=== PATIENT | male | born 1955 | race Caucasian/White ===

== ENCOUNTER 2018-08-22 00:44 | Inpatient (IN) | payer MEDICARE, OTHER ==
[2018-08-22] MEDS ORDERED: NITROGLYCERIN OINT 1 INCH/GM PACKET TOPICAL STA (00:58)
[2018-08-22] MEDS ORDERED: SODIUM CHLORIDE 0.9% 1,000 ML IV STA (00:58)
--- NOTE | 2018-08-22 01:01 | ED ---
Chest Pain HPI - General Chief Complaint: Chest Pain Stated Complaint: Chest Pain Time Seen by Provider: 08/22/18 00:55 Source: patient, EMS Mode of arrival: EMS - History of Present Illness Initial Comments: This is a 62-year-old male with a history of hypertension, every day smoker who presents the emergency department for evaluation of chest pain. Patient reports that he was walking to his mailbox when he began experiencing pain in his chest and numbness in his left arm. This made him concerned so called 911. EMS arrived on scene, patient was in moderate distress, appearing comfortable , was given aspirin and nitro with some improvement in his chest pain he subsequent transfer to the ER for further evaluation. EMS EKG showed no acute ST elevations or depressions or evidence of acute ischemia or infarction. She reports he has a history of hypertension but he takes his medications, he is uncertain if he has hyperlipidemia, he is not diabetic, he isn't every day smoker, he has no known cardiac history. - Related Data Allergies Allergy/AdvReac Type Severity Reaction Status Date / Time No Known Allergies Allergy Verified 08/22/18 00:58 Review of Systems ROS Statement: Those systems with pertinent positive or pertinent negative responses have been documented in the HPI. ROS Other: All systems not noted in ROS Statement are negative. EKG Findings - EKG Comments: EKG Findings:: EKG obtained at 12:53 AM, rate is 109, rhythm is sinus tachycardia, there is normal axis, normal intervals, TN 172, curious 86, QTC is 465. There is significant respiratory variation with a wandering baseline, no obvious acute ST elevations, no ST depressions no acute ischemia or infarction. Repeat EKG obtained at 2:01 AM, rate is 100, rhythm is sinus, there is a normal axis, normal intervals, TN 154, QRS 86, QTC is 459. There still appeared to be 1 mm elevations in V2 through V4, no reciprocal depressions, no STEMI criteria. Patient is chest pain-free at the time of this EKG. Past Medical History Past Medical History: Hypertension History of Any Multi-Drug Resistant Organisms: None Reported Past Surgical History: No Surgical Hx Reported Past Psychological History: No Psychological Hx Reported Smoking Status: Current every day smoker Past Alcohol Use History: Daily Past Drug Use History: None Reported Course Vital Signs 08/22/18 08/22/18 00:55 01:35 Temperature 98.2 F Pulse Rate 107 H 105 H Respiratory 16 16 Rate Blood Pressure 125/77 128/75 O2 Sat by Pulse 97 97 Oximetry Chest Pain MDM - Differential Diagnosis AMI - MDM Patient was seen and evaluated, history was obtained from patient and EMS 62-year-old gentleman with multiple comorbidities and including hypertension, tobacco abuse, age presents the ED with chest pain that began while walking to the mailbox, pain was retrosternal in nature radiated to his left shoulder. Pain resolved with nitro. Upon arrival to the emergency department patient is chest pain-free and feeling well. Heart score 7 Troponin elevated, low dose heparin ordered D-dimer elevated, CT ordered Transaminases elevated, likely related to alcohol use Patient care discussed with Dr. Dixon of [facility], [place] physician who accepts admission for NSTEMI CT-PE pending at time of admission CT PE negative for acute PE Disposition Clinical Impression: NSTEMI (non-ST elevated myocardial infarction), Tobacco abuse, HTN ( hypertension), Alcohol abuse Disposition: ADMITTED IP TO THIS HOSP Condition: Good Is patient prescribed a controlled substance at d/c from ED?: No
[2018-08-22 01:29] LABS: ALT 123 U/L (21-72); AST 142 U/L (17-59); Albumin 4.6 g/dL (3.5-5.0); Alcohol 32 mg/dL; Alkaline Phosphatase 89 U/L (38-126); Anion Gap 22 mmol/L; Blood Urea Nitrogen 17 mg/dL (9-20); Calcium 9.2 mg/dL (8.4-10.2); Carbon Dioxide 13 mmol/L (22-30); Chloride 103 mmol/L (98-107); Glucose 81 mg/dL (74-99); Lipase 86 U/L (23-300); Magnesium 1.6 mg/dL (1.6-2.3); Potassium 4.6 mmol/L (3.5-5.1); Sodium 138 mmol/L (137-145); Total Bilirubin 0.6 mg/dL (0.2-1.3); Total Protein 7.4 g/dL (6.3-8.2)
[2018-08-22 01:34] LABS: Partial Thromboplastin Time 22.3 sec (22.0-30.0); Prothrombin Time 9.8 sec (9.0-12.0)
[2018-08-22 01:42] LABS: Appearance,Urine Clear (Clear); Bilirubin,Urine Negative (Negative); Blood,Urine Negative (Negative); Color,Urine Yellow; Glucose,Urine (UA) Negative (Negative); Ketones,Urine 2+ (Negative); Leukocyte Esterase,Urine Negative (Negative); Nitrite,Urine Negative (Negative); Protein,Urine Trace (Negative); Specific Gravity,Urine 1.018 (1.001-1.035); Urobilinogen,Urine <2.0 mg/dL (<2.0)
--- NOTE | 2018-08-22 01:42 | XR ---
EXAMINATION TYPE: XR chest 2V DATE OF EXAM: 08/22/2018 COMPARISON: NONE HISTORY: Chest pain TECHNIQUE: Frontal and lateral views of the chest are obtained. FINDINGS: Heart size is normal. There is some coarsening of the interstitial pulmonary markings. The re is flattening of the diaphragm. There is no heart failure. There is no definite pleural effusion. Thoracic aorta is atheromatous. Bony thorax is intact. IMPRESSION: COPD and pulmonary fibrosis. No gross heart failure.
[2018-08-22 01:51] LABS: Amphetamine Screen,Urine Not Detected (NotDetected); Barbiturate Screen,Urine Not Detected (NotDetected); Benzodiazepines Screen,Urine Not Detected (NotDetected); Cocaine Screen,Urine Not Detected (NotDetected); Methadone Screen, Urine Not Detected (NotDetected); Opiate Screen,Urine Not Detected (NotDetected); Oxycodone Screen, Urine Not Detected (NotDetected); Phencyclidine Screen,Urine Not Detected (NotDetected); Tricyclic Antidepressant,Urine Not Detected (NotDetected); Urn Cannabinoid Scrn Not Detected (NotDetected)
[2018-08-22 01:52] LABS: Basophils # (A) 0.1 k/uL (0-0.2); Basophils % (A) 1 %; Eosinophils % (A) 0 %; HCT 38.6 % (39.0-53.0); HGB 12.6 gm/dL (13.0-17.5); Lymphocytes # (A) 1.6 k/uL (1.0-4.8); Lymphocytes % (A) 13 %; MCHC 32.6 g/dL (31.0-37.0); MCV 104.1 fL (80.0-100.0); Macrocytosis Slight; Mean Platelet Volume 7.3; Monocytes # (A) 0.3 k/uL (0-1.0); Monocytes % (A) 3 %; Neutrophils # (A) 10.5 k/uL (1.3-7.7); Neutrophils % (A) 83 %; Platelet Count 293 k/uL (150-450); RBC 3.71 m/uL (4.30-5.90); RDW 13.3 % (11.5-15.5); WBC 12.7 k/uL (3.8-10.6)
[2018-08-22 01:54] LABS: Troponin I 0.124 ng/mL (0.000-0.034)
[2018-08-22] MEDS ORDERED: HEPARIN SODIUM,PORCINE 5,000 UNIT/ML 1 ML VIAL IV ONE (01:59)
[2018-08-22] MEDS ORDERED: HEPARIN SODIUM,PORCINE 5,000 UNIT/ML 1 ML VIAL IV PRN (01:59)
[2018-08-22] MEDS ORDERED: NITROGLYCERIN SL TABS 0.4 MG TAB SUBLINGUAL PRN ×2 (02:02→10:15)
[2018-08-22 02:06] LABS: D-Dimer 1.15 mg/L FEU (<0.60)
[2018-08-22] MEDS: HEPARIN SOD,PORK IN 0.45% NACL 25,000 UNIT in 0.45% NACL 1 500ML.BAG IV SCH (02:48)
--- NOTE | 2018-08-22 02:50 | CT ---
EXAMINATION TYPE: CT chest angio for PE DATE OF EXAM: 08/22/2018 COMPARISON: None HISTORY: No prior, Chest pain, SOB, elevated d-dimer R/O PE CT DLP: 300.40 mGycm Automated exposure control for dose reduction was used. CONTRAST: CT Chest for pulmonary embolism performed with with IV Contrast, patient injected with 70 mL of Isovu e 370. FINDINGS: There is 5 cm area of irregular consolidation in the superior segment right lower lobe with cavitati on. There is patchy infiltrate at both lung bases. There is some diffuse pulmonary emphysema. There i s some spiculated infiltrate at the right lung apex. Thoracic aorta is atheromatous. There is minimal pleural thickening at the right lung base. Heart size is normal. There is no pericardial effusion. There is normal contrast opacification of the pulmonary arteries. I see no filling defect. There is no evidence of aortic aneurysm or dissection. Thoracic aorta is atheromatous. There is no mediastinal adenopathy. There are no hilar masses. The [place] thorax appears intact. Upper abdominal soft tissues show evidence of fatty infiltration of the aldo er. IMPRESSION: No evidence of pulmonary embolism. Emphysema. Cavitating infiltrate in the right paraspinal right lower lobe. This is more likely relate d to inflammatory disease. Necrotic tumor cannot be entirely excluded. Follow-up is recommended. Patchy pulmonary fibrotic changes.
[2018-08-22] MEDS ORDERED: THIAMINE 100 MG/ML 2 ML VIAL IM STA (03:06)
[2018-08-22] MEDS ORDERED: LORazepam 2 MG/ML INJ IV PRN ×2 (03:06)
[2018-08-22] MEDS: LORazepam 2 MG/ML INJ IV PRN (03:19)
[2018-08-22] MEDS ORDERED: IPRATROPIUM-ALBUTEROL 3 ML NEB INHALATION STA (03:22)
--- NOTE | 2018-08-22 06:42 | P.HPIM ---
History of Present Illness H&P Date: 08/22/18 Chief Complaint: Chest pain 62-year-old male with history of hypertension Patient presented to the emergency department due to complaints of chest pain patient describes the pain as left-sided induced by activity while walking to the mailbox happened all of a sudden what he experienced left-sided chest pain 8 out of 10 in severity and felt like heaviness, radiating to the left shoulder. This was also associated with some difficulty in breathing and sweating. Patient grew concerned and called 911 and EMS gave him aspirin and nitro with helped with his pain patient denies any prior history of coronary artery disease In the emergency department patient was chest pain-free, further workup showed elevation of troponins, and EKG showed Q waves in leads V3 with very slight elevation not meeting criteria STEMI. CT angiogram of the chest was performed due to elevated d-dimer and showed no acute PE however suggested possibility of necrotic tumor. Patient claims that his last alcoholic drink was 2 days ago where he had a fifth of vodka, he otherwise only drinks occasionally Patient otherwise denies any abdominal pain nausea vomiting denies any changes in his bowel or urinary habits denies any GI bleeding denies any headache changes in his vision or hearing. Review of Systems Pertinent positives as noted in HPI. All other systems were reviewed and are negative Past Medical History Past Medical History: Asthma, Hypertension, Osteoarthritis (OA) Additional Past Medical History / Comment(s): pt states only drinks occasionally , pt states "drank fifth of vodka on 08/19/18" but before that states its been 2 months since he drank History of Any Multi-Drug Resistant Organisms: None Reported Past Surgical History: No Surgical Hx Reported Past Anesthesia/Blood Transfusion Reactions: No Reported Reaction Past Psychological History: No Psychological Hx Reported Smoking Status: Current every day smoker Past Alcohol Use History: Daily Additional Past Alcohol Use History / Comment(s): pt states only drinks occasionally, pt states "drank fifth of vodka on 08/19/18" but before that states its been 2 months since he drank. Past Drug Use History: Marijuana - Past Family History Father Family Medical History: Unable to Obtain Mother Family Medical History: Diabetes Mellitus Medications and Allergies Allergies Allergy/AdvReac Type Severity Reaction Status Date / Time No Known Allergies Allergy Verified 08/22/18 00:58 Physical Exam Vitals: Vital Signs Temp Pulse Pulse Resp BP BP Pulse Ox 08/22/18 04:09 119 H 08/22/18 04:00 96.7 F L 113 H 18 142/75 95 08/22/18 03:57 119 H 08/22/18 03:30 109 H 7 L 168/87 92 L 08/22/18 03:20 112 H 23 168/87 93 L 08/22/18 03:17 96.7 F L 113 H 20 142/75 95 08/22/18 03:10 112 H 20 168/87 93 L 08/22/18 02:10 114 H 27 H 127/76 08/22/18 01:35 105 H 16 128/75 97 08/22/18 01:30 107 H 15 128/75 97 08/22/18 01:00 106 H 18 125/77 96 08/22/18 00:55 98.2 F 107 H 16 125/77 97 08/22/18 00:50 109 H 26 H 08/22/18 00:48 114 H 25 H Intake and Output 08/21/18 08/21/18 08/22/18 14:59 22:59 06:59 Intake Total 36 Balance 36 Intake: IV 36 Heparin Sod,Pork in 0.45% 36 NaCl 25,000 unit In 0.45 % NaCl 1 500ml.bag @ 12 UNITS/KG/HR 17.96 mls/hr IV .Q24H [facility] Rx#: [id number] Other: Voiding Method Toilet # Voids 2 Weight 79.4 kg Constitutional: No acute distress, conversant, pleasant Eyes: Anicteric sclerae, moist conjunctiva, no lid-lag Pupils equal round reactive to light ENMT: NC/AT Oropharynx clear, no erythema, or exudates Neck: Supple, FROM, no masses, or JVD No carotid bruits No thyromegaly Lungs: Clear to auscultation Clear to percussion Normal respiratory effort, no accessory muscle use Cardiovascular: Heart regular in rate and rhythm, No murmurs, gallops, or rubs No peripheral edema Abdominal: Soft Nontender, no guarding, rebound or rigidity Abdomen moving with respiration Normoactive bowel sounds No hepatomegaly, No splenomegaly No palpable mass No abdominal wall hernia noted Skin: Normal temperature, tone, texture, turgor No induration No subcutaneous nodules No rash, lesions No ulcers Extremities: No digital cyanosis No clubbing Pedal pulses intact and symmetrical Radial pulses intact and symmetrical No calf tenderness Psychiatric: Alert and oriented to person, place and time Appropriate affect fair judgment Neuro Muscles Strength 5/5 in all 4 extremities Sensation to light touch grossly present throughout Cranial nerves II-XII grossly intact No focal sensory deficits Lymphatics: no palpable cervical or supraclavicular , or inguinal lymph nodes Results CBC & Chem 7: 08/22/18 01:45 08/22/18 01:10 Labs: Abnormal Lab Results - Last 24 Hours (Table) 08/22/18 08/22/18 08/22/18 Range/Units 01:10 01:10 01:10 WBC (3.8-10.6) k/uL RBC (4.30-5.90) m/uL Hgb (13.0-17.5) gm/dL Hct (39.0-53.0) % MCV (80.0-100.0) fL Neutrophils # (1.3-7.7) k/uL D-Dimer 1.15 H (<0.60) mg/L FEU Carbon Dioxide 13 L (22-30) mmol/L AST 142 H (17-59) U/L ALT 123 H (21-72) U/L CK-MB (CK-2) 3.0 H (0.0-2.4) ng/mL Troponin I 0.124 H* (0.000-0.034) ng/mL Urine Protein (Negative) Urine Ketones (Negative) 08/22/18 08/22/18 Range/Units 01:20 01:45 WBC 12.7 H (3.8-10.6) k/uL RBC 3.71 L (4.30-5.90) m/uL Hgb 12.6 L (13.0-17.5) gm/dL Hct 38.6 L (39.0-53.0) % MCV 104.1 H (80.0-100.0) fL Neutrophils # 10.5 H (1.3-7.7) k/uL D-Dimer (<0.60) mg/L FEU Carbon Dioxide (22-30) mmol/L AST (17-59) U/L ALT (21-72) U/L CK-MB (CK-2) (0.0-2.4) ng/mL Troponin I (0.000-0.034) ng/mL Urine Protein Trace H (Negative) Urine Ketones 2+ H (Negative) Thrombosis Risk Factor Assmnt - Choose All That Apply Any of the Below Risk Factors Present?: Yes Each Factor Represents 1 point: Obesity (BMI >25) Other Risk Factors: Yes Each Risk Factor Represents 2 Points: Age 61-74 years Other congenital or acquired thrombophilia - If yes, enter type in comment: No Thrombosis Risk Factor Assessment Total Risk Factor Score: 3 Thrombosis Risk Factor Assessment Level: Moderate Risk Assessment and Plan Assessment: 62-year-old male with history of hypertension and alcohol abuse. Patient admitted as inpatient with anticipated length of stay more than 48 hours for an STEMI with typical chest pain. 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 Follow-up troponins and cardiac enzymes Check lipid profile Check A1c Alcohol abuse Patient counseled regarding acceptable drinking limits Withdrawal precautions Benzodiazepines per CIWA Thiamine Mild microcytic anemia secondary to alcohol abuse Continue to monitor Mild alcohol hepatitis Continue to monitor Incidental finding on CT angiogram of the chest suggestive of possible necrotic tumor further workup is warranted per report resulted Surrogate decision-maker: patient brother CODE STATUS: Full code DVT prophylaxis: On heparin drip Discussed with: Patient, ER, RN Anticipated discharge: 48-[address]:home A total of 60 minutes was spent on the care of this complex patient more than 50 % of the time was spent in counseling and care coordination.
[2018-08-22] MEDS: MULTIVITAMINS, THERA 1 EACH TAB PO SCH (08:07)
[2018-08-22] MEDS: NICOTINE 14MG/24HR PATCH TRANSDERM SCH (08:08)
[2018-08-22] MEDS: METOPROLOL TARTRATE 25 MG TAB PO SCH ×2 (08:08→21:30)
--- NOTE | 2018-08-22 08:19 | P.CRDCN ---
History of Present Illness Consult date: 08/22/18 Requesting physician: Melinda Dixon Consult reason: non-Q-wave [facility] Chief complaint: Chest pain History of present illness: This pleasant 62-year-old gentleman with history of hypertension for which he states he takes antihypertensives as needed, history of nicotine dependence, patient's smokes at least one pack of cigarettes per day and he has been smoking since the age of 14. He denies any history of diabetes and is unsure of his cholesterol. He does state that his grandfather had history of heart disease and heart attacks which started at a fairly young age. According to the patient, he forgot to get his mail earlier in the day so around 12:30 last night he walked out to his mailbox, shortly thereafter he states that he developed significant tightness and pressure in his chest, he became extremely short of breath and diaphoretic. For this reason EMS was called and the patient was brought to the hospital for further evaluation and treatment. His initial EKG on arrival here showed a normal sinus rhythm with ST-T wave changes noted in the anterior leads. Subsequent EKG was performed which shows normal sinus rhythm with ST-T wave changes noted in the anterior leads. Chest x-ray showed COPD and pulmonary fibrosis with no evidence of heart failure. A CT of the chest was also performed which was negative for pulmonary embolism, it did show emphysema with an infiltrate in the right lower lobe. Blood pressure on arrival here 125/70 with a heart rate in the 100, 97% on room air. Blood pressure this morning 142/70 with a heart rate of 110, 95% on 2 L of oxygen. White blood cell count 12.7, hemoglobin 12.6, platelet count 293. D-dimer was 1.1. Sodium 138, potassium 4.6, BUN 17, creatinine 0.7. BNP level 1530, troponin 0.124. AST 142, ALT 123. At the time of my examination this morning, patient continues to complain of chest tightness and is mildly diaphoretic. Past Medical History Past Medical History: Asthma, Hypertension, Osteoarthritis (OA) Additional Past Medical History / Comment(s): pt states only drinks occasionally , pt states "drank fifth of vodka on 08/19/18" but before that states its been 2 months since he drank History of Any Multi-Drug Resistant Organisms: None Reported Past Surgical History: No Surgical Hx Reported Past Anesthesia/Blood Transfusion Reactions: No Reported Reaction Past Psychological History: No Psychological Hx Reported Smoking Status: Current every day smoker Past Alcohol Use History: Daily Additional Past Alcohol Use History / Comment(s): pt states only drinks occasionally, pt states "drank fifth of vodka on 08/19/18" but before that states its been 2 months since he drank. Past Drug Use History: Marijuana - Past Family History Father Family Medical History: Unable to Obtain Mother Family Medical History: Diabetes Mellitus Medications and Allergies Allergies Allergy/AdvReac Type Severity Reaction Status Date / Time No Known Allergies Allergy Verified 08/22/18 00:58 Physical Exam Vitals: Vital Signs Temp Pulse Pulse Resp BP BP Pulse Ox 08/22/18 04:09 119 H 08/22/18 04:00 96.7 F L 113 H 18 142/75 95 08/22/18 03:57 119 H 08/22/18 03:30 109 H 7 L 168/87 92 L 08/22/18 03:20 112 H 23 168/87 93 L 08/22/18 03:17 96.7 F L 113 H 20 142/75 95 08/22/18 03:10 112 H 20 168/87 93 L 08/22/18 02:10 114 H 27 H 127/76 08/22/18 01:35 105 H 16 128/75 97 08/22/18 01:30 107 H 15 128/75 97 08/22/18 01:00 106 H 18 125/77 96 08/22/18 00:55 98.2 F 107 H 16 125/77 97 08/22/18 00:50 109 H 26 H 08/22/18 00:48 114 H 25 H Intake and Output 08/21/18 08/22/18 08/22/18 22:59 06:59 14:59 Intake Total 36 Balance 36 Intake: IV 36 Heparin Sod,Pork in 0.45% 36 NaCl 25,000 unit In 0.45 % NaCl 1 500ml.bag @ 12 UNITS/KG/HR 17.96 mls/hr IV .Q24H [facility] Rx#: [id number] Other: Voiding Method Toilet # Voids 2 Weight 79.4 kg PHYSICAL EXAMINATION: GENERAL: 62-year-old gentleman, complaining of chest tightness at the time of my examination HEENT: Head is atraumatic, normocephalic. Pupils equal, round. Sclera anicteric. Conjunctiva are clear. Mucous membranes of the mouth are moist. Neck is supple. There is no elevated jugular venous pressure. No carotid bruit is heard. HEART EXAMINATION: Heart S1, S2 normal. No murmur or gallop heard. CHEST EXAMINATION: Lungs are clear with fine expiratory wheezes throughout. ABDOMEN: Soft, nontender. Bowel sounds are heard. No organomegaly noted. EXTREMITIES: 2+ peripheral pulses with no evidence of peripheral edema and no calf tenderness noted. NEUROLOGIC patient is awake, alert and oriented X3. . Results 08/22/18 01:45 08/22/18 01:10 Cardiac Enzymes 08/22/18 08/22/18 Range/Units 01:10 01:10 AST 142 H (17-59) U/L CK-MB (CK-2) 3.0 H (0.0-2.4) ng/mL Troponin I 0.124 H* (0.000-0.034) ng/mL Coagulation 08/22/18 Range/Units 01:10 PT 9.8 (9.0-12.0) sec APTT 22.3 (22.0-30.0) sec CBC 08/22/18 Range/Units 01:45 WBC 12.7 H (3.8-10.6) k/uL RBC 3.71 L (4.30-5.90) m/uL Hgb 12.6 L (13.0-17.5) gm/dL Hct 38.6 L (39.0-53.0) % Plt Count 293 (150-450) k/uL Comprehensive Metabolic Panel 08/22/18 Range/Units 01:10 Sodium 138 (137-145) mmol/L Potassium 4.6 (3.5-5.1) mmol/L Chloride 103 (98-107) mmol/L Carbon Dioxide 13 L (22-30) mmol/L BUN 17 (9-20) mg/dL Creatinine 0.70 (0.66-1.25) mg/dL Glucose 81 (74-99) mg/dL Calcium 9.2 (8.4-10.2) mg/dL AST 142 H (17-59) U/L ALT 123 H (21-72) U/L Alkaline Phosphatase 89 (38-126) U/L Total Protein 7.4 (6.3-8.2) g/dL Albumin 4.6 (3.5-5.0) g/dL Current Medications Generic Name Dose Route Start Last Admin Trade Name Rommelq PRN Reason Stop Dose Admin Aspirin 325 mg 08/23/18 09:00 Aspirin PO DAILY [facility] Heparin Sodium (Porcine) 0 unit 08/22/18 01:59 Heparin IV PER PROTOCOL PRN Low PTT Protocol Heparin Sodium/Sodium Chloride 500 mls @ 17.96 mls/hr 08/22/18 02:00 02:48 25,000 unit/ Sodium Chloride IV 12 units/kg/hr .Q24H [facility] 17.96 mls/hr Administration Protocol 12 UNITS/KG/HR Lorazepam 1 mg 08/22/18 03:06 Ativan IV Q2HR PRN CIWA 8 or 9 Lorazepam 1 mg 08/22/18 03:06 08/22/18 03:19 Ativan IV 1 mg Q1HR PRN Administration CIWA 10 to 15 Lorazepam 2 mg 08/22/18 03:06 Ativan IV 08/24/18 03:06 Q10M PRN CIWA 16 or higher Metoprolol Tartrate 25 mg 08/22/18 09:00 08/22/18 08:08 Lopressor PO 25 mg BID [facility] Administration Multivitamins 1 each 08/22/18 12:00 08/22/18 08:07 Theragran PO 1 each DAILY@1200 [facility] Administration Nicotine 1 patch 08/22/18 09:00 08/22/18 08:08 Habitrol 14mg/24hr Patch TRANSDERM 1 patch DAILY [facility] Administration Nitroglycerin 0.4 mg 08/22/18 02:02 08/22/18 08:06 Nitrostat SUBLINGUAL 0.4 mg Q5M PRN Administration Chest Pain Thiamine HCl 100 mg 08/22/18 17:00 Vitamin B-1 PO BID@1200,1700 [facility] Intake and Output 08/21/18 08/22/18 08/22/18 22:59 06:59 14:59 Intake Total 36 Balance 36 Intake: IV 36 Heparin Sod,Pork in 0.45% 36 NaCl 25,000 unit In 0.45 % NaCl 1 500ml.bag @ 12 UNITS/KG/HR 17.96 mls/hr IV .Q24H [facility] Rx#: [id number] Other: Voiding Method Toilet # Voids 2 Weight 79.4 kg 08/22/18 01:45 08/22/18 01:10 EKG Interpretations (text) EKG shows a normal sinus rhythm with ST-T wave changes noted in the anterior leads. Assessment and Plan Plan: Assessment and plan #1 symptoms of chest tightness with associated shortness of breath and diaphoresis, initial troponin 0.124. EKG shows normal sinus rhythm with ST-T wave changes noted in the anterior leads, which are suggestive of non-Q-wave myocardial infarction #2 hypertension, only takes when necessary antihypertensives #3 nicotine dependence, patient's smokes one pack of cigarettes per day and has been smoking since age of 14 #4 family history of premature coronary artery disease #5 elevated AST and ALT, 142 and 123. Plan We will obtain a stat echocardiogram with Doppler study. As the patient is currently expecting chest pain we will give her sublingual nitroglycerin. We' ll start the patient on Lipitor 80 mg daily, continue IV heparin, patient is on an aspirin, he has been advised that he may need to undergo cardiac catheterization for further diagnosis. Risks and the benefits were explained to the patient in detail and he is willing to proceed. Further recommendations to follow. DNP note has been reviewed, I agree with a documented findings and plan of care. Patient was seen and examined.
[2018-08-22 08:47] LABS: Creatine Kinase MB 6.9 ng/mL (0.0-2.4)
[2018-08-22 08:51] LABS: Troponin I 1.18 ng/mL (0.000-0.034)
[2018-08-22] MEDS ORDERED: FUROSEMIDE 10 MG/ML 4 ML VIAL IV STA (09:58)
[2018-08-22] MEDS: ATORVASTATIN 80 MG TAB PO SCH (10:11)
--- NOTE | 2018-08-22 10:13 | P.PN ---
Progress Note - Text Progress Note Date: 08/22/18 62-year-old male with past medical history of hypertension presents to the hospital for sudden onset chest pain and shortness of breath. He also complains of numbness in his left arm. He describes the pain as being "punched in the chest". he does report smoking 1 pack per day since age of 14. He takes albuterol and a controller inhaler as well. Initial troponin elevated at 0.124, repeat 1.180. D-Dimer elevated as well but CTA Chest rules out PE. Also seen is a spiculated, cavitary lesion, possible necrotic tumor. Cardiology and Pulmonology consulted. Patient was seen and examined around 9:50AM. Patient reports resolution of his chest pain but continues to complain of SOB. Also denies daily drinking but states had a binge drinking episode of 1/5th hard liquor on Monday. Patient is in no acute distress. He is alert and oriented 3. He is tachycardic. No murmurs, rubs or gallops. No lower extremity edema. No JVD. Lungs are clear to auscultation bilaterally. 1. Chest pain: Concerns for ACS. Troponin 0.124, 1.180 with EKG showing Q waves in lead 3. D-Dimer 1.15, CTA chest shows no PE. CXR shows COPD and pulmonary fibrosis. Cardiology consulted, Echocardiogram ordered, NPO for possible angiogram. Continue ASA 325 mg PO QD, Lipitor 80 mg PO QHS. Continue Heparin drip. Nitrostat PRN for chest pain. Continue Metoprolol 25 mg PO BID. Telemetry monitoring. FU Cardiology, A1c, Lipid panel 2. Lung mass: CTA chest shows Emphysema and a cavitating infiltrate in the RLL ( necrotic tumor cannot be ruled out). Long smoking history. FU Pulmonology 3. EtOH abuse: Last drink of Monday. Denies WD symptoms. CIWA protocol. Ativan IV PRN for CIWA > 8. Continue MVI 1 tab PO QD, Thiamine 100 mg PO BID. 4. Tachycardia: Possibly related to EtOH abuse. HR 106-119. PE ruled out. ACS workup underway. Possibly related to EtOH abuse. Continue Metoprolol 25 mg PO BID. Telemetry monitoring. Keep Mg > 2, K > 4. Will continue to monitor. 5. Leukocytosis: WBC 12.7. Mild. Patient is afebrile with no signs of infection. Likely reactive. Daily CBC. 6. Anemia: Hg 12.6 Hct 38.6 MCV 104.1. Likely related to EtOH abuse. Transfuse if Hg < 7.0. FU B12/Folate, Ferritin, Iron studies 7. Transaminiitis: AST 142, ALT 123. T. Bili and ALKP is within normal limits, no obstruction. Likely related to EtOH abuse. Daily CMP. 8. COPD: Presumed. Seen on CTA Chest and CXR with a long smoking history. Start DuoNeb QID PRN and Symbicort 2 puff BID. O2 per NC to maintain O2 sat > 92%. FU Pulmonology 9. Nicotine dependance: Start Habitrol 14 mg TRANSDERM QD. 10. DVT/GI Prophylaxis: Heparin drip. Start Protonix 40 mg PO QD.
[2018-08-22] MEDS ORDERED: SODIUM CHLORIDE 0.9% 1,000 ML in EMPTY BAG 1 BAG IV ONE (10:15)
[2018-08-22] MEDS ORDERED: ALPRAZolam 0.5 MG TAB PO PRN (10:15)
[2018-08-22] MEDS ORDERED: ALPRAZolam 0.25 MG TAB PO PRN (10:15)
[2018-08-22] MEDS ORDERED: ATORVASTATIN 80 MG TAB PO STA (10:15)
[2018-08-22] MEDS ORDERED: ASPIRIN 325 MG TAB PO STA (10:15)
[2018-08-22 11:31] LABS: Glucose,Whole Blood 101 mg/dL (75-99)
--- NOTE | 2018-08-22 12:06 | ECHOF ---
Referral Reason:abn trop MEASUREMENTS -------- HEIGHT: 170.2 cm WEIGHT: 79.4 kg BP: 142/75 RVIDd: 3.4 cm (< 3.3) IVSd: 1.0 cm (0.6 - 1.1) LVIDd: 5.7 cm (3.9 - 5.3) LVPWd: 1.2 cm (0.6 - 1.1) IVSs: 1.3 cm LVIDs: 4.4 cm LVPWs: 1.3 cm LA Diam: 3.8 cm (2.7 - 3.8) LAESV Index (A-L): 36.96 ml/m Ao Diam: 3.0 cm (2.0 - 3.7) AV Cusp: 1.3 cm (1.5 - 2.6) EPSS: 2.5 cm MV E Lupillo: 1.37 m/s MV DecT: 109 ms MV A Lupillo: 1.08 m/s MV E/A Ratio: 1.27 RAP: 5.00 mmHg RVSP: 56.29 mmHg MV EF SLOPE: 80.71 mm/s (70 - 150) MV EXCURSION: 1.76 cm (> 18.000) FINDINGS -------- Sinus rhythm. This was a technically adequate study. The left ventricular size is normal. There is borderline concentric left ventricular hypertrophy. Overall left ventricular systolic function is severely impaired with, an EF between 20 - 25 %. The right ventricle is mildly enlarged. LA is moderately dilated 34-39 ml/m2 The right atrium is normal in size. There is mild aortic valve sclerosis. There is mild aortic regurgitation. Mild mitral annular calcification present. Mild mitral regurgitation is present. Mild tricuspid regurgitation present. There is severe pulmonary hypertension. The right ventricul ar systolic pressure, as measured by Doppler, is 56.29mmHg. The pulmonic valve was not well visualized. The aortic root size is normal. Normal inferior vena cava with normal inspiratory collapse consistent with estimated right atrial pre ssure of 5 mmHg. There is no pericardial effusion. CONCLUSIONS -------- 1. Sinus rhythm. 2. This was a technically adequate study. 3. The left ventricular size is normal. 4. There is borderline concentric left ventricular hypertrophy. 5. Overall left ventricular systolic function is severely impaired with, an EF between 20 - 25 %. 6. The right ventricle is mildly enlarged. 7. LA is moderately dilated 34-39 ml/m2 8. The right atrium is normal in size. 9. There is mild aortic valve sclerosis. 10. There is mild aortic regurgitation. 11. Mild mitral annular calcification present. 12. Mild mitral regurgitation is present. 13. Mild tricuspid regurgitation present. 14. There is severe pulmonary hypertension. 15. The right ventricular systolic pressure, as measured by Doppler, is 56.29mmHg. 16. The pulmonic valve was not well visualized. 17. The aortic root size is normal. 18. Normal inferior vena cava with normal inspiratory collapse consistent with estimated right atrial pressure of 5 mmHg. 19. There is no pericardial effusion. MEDICAL BILLING MANAGER: JAYDEN Gustafson
[2018-08-22] MEDS ORDERED: MIDAZOLAM 2 MG/2 ML VIAL IV ONE (12:10)
[2018-08-22] MEDS ORDERED: LIDOCAINE 1% INJ 10MG/ML (20 ML MDV) SQ ONE (12:13)
[2018-08-22] MEDS: VERAPAMIL SYRINGE (5 MG/10 ML) INTRAARTER ONE ×2 (12:14→12:53)
[2018-08-22] MEDS ORDERED: IV FLUID CONTINUATION 300 ML IV ONE (12:15)
[2018-08-22] MEDS ORDERED: fentaNYL (PF) 50 MCG/ML 2 ML AMP IV ONE (12:20)
[2018-08-22] MEDS ORDERED: HEPARIN SODIUM 1,000 UN/ML (10ML VL) IV ONE (12:36)
[2018-08-22] MEDS ORDERED: IOPAMIDOL-370 125ML BTL INJ ONE (12:54)
[2018-08-22] MEDS ORDERED: SODIUM CHLORIDE 0.9% 1,000 ML IV SCH (13:00)
[2018-08-22] MEDS ORDERED: RX INFO: IV CONTRAST WAS GIVEN 1 EACH MISC MISCELLANE PRN (13:00)
--- NOTE | 2018-08-22 13:35 | CC ---
CARDIAC CATHETERIZATION REPORT DATE OF SERVICE: August 22, 2018 PERFORMING PHYSICIAN: Laith Benito MD, line helper. PROCEDURE PERFORMED: Selective right and left coronary angiogram. INDICATION: This is a pleasant 62-year-old gentleman with hypertension and significant history of smoking as well as significant family history of coronary artery disease, was brought to the emergency room by ambulance yesterday with chest discomfort and was ruled in for acute coronary event. As a matter of fact, the EKG showed sinus rhythm with ST elevation in the anteroseptal leads and Q-wave anteriorly. A heart catheterization was advised. APPROACH: Right radial artery. COMPLICATION: None. LEVEL OF SEDATION: Moderate with sedation length of 20 minutes. PROCEDURE DESCRIPTION: After obtaining an informed consent, the patient was brought to the cardiac rn cardiac cath. The right radial artery was cannulated using micropuncture technique, the micropuncture wire passed easily then I placed a 6-Welsh sheath in the right radial artery. After that, I did selective right and left coronary angiogram using JR4 and and JL3.5 catheters. The procedure was completed without any complication. SELECTIVE CORONARY ANGIOGRAM: 1. The right coronary artery is a medium caliber vessel. It is a nondominant vessel and it is angiographically normal. 2. The left main is a large caliber vessel. It is a short left main. It bifurcates into left circumflex and left anterior descending artery. 3. The left circumflex is a large caliber vessel. It is a dominant vessel. The proximal left circumflex appeared to be angiographically normal and gives rise into a large OM branch which has intermediate disease only appeared to be in the range of 50%. The mid left circumflex has mild disease only and the left circumflex distally appeared to be angiographically normal and bifurcates into PDA and PLV branches both are angiographically normal. 4. The LAD: The ostial LAD has a tight lesion appeared to be in the range of 90% to 95%. The mid LAD appeared to have mild disease only and gives rise into a diagonal branch which appeared to have mild disease only as well. The LAD distally appeared to be angiographically normal. CONCLUSION: Critical disease involving the ostial left anterior descending artery, right by a takeoff from the left main with calcified lesion appeared to be in the range of 90% to 95%. POSTPROCEDURE MANAGEMENT: Giving the anatomy, I did recommend the patient to be seen and evaluated by cardiothoracic surgeon. I did speak with Dr. Reddy and I discussed the case with him and he is going to review the angiogram and talk to the patient. Further recommendation to follow that. Meanwhile, I will keep the patient on heparin drip after we achieve hemostasis from the right radial sheath and I already gave the patient 8000 units of heparin IV as a bolus. MMBABAR / IJN: [id number] /
[2018-08-22] MEDS ORDERED: IPRATROPIUM-ALBUTEROL 3 ML NEB INHALATION PRN (13:46)
--- NOTE | 2018-08-22 14:14 | P.CNPUL ---
History of Present Illness Consult date: 08/22/18 Requesting physician: Melinda Dixon Reason for consult: abnormal CXR/CT Chief complaint: Chest pain History of present illness: This is a pleasant 62-year-old gentleman who has a history of hypertension and a 48 year pack per day smoking history. He also has occasional alcohol use and recently drank a fifth and passed out. He presented here early this morning with complaints of chest pain. EKG showed STT wave changes noted in the anterior leads. His troponins were borderline positive at 0.124 and 0.180 just above non-Q-wave myocardial infarction. ProBNP level 1530. Urine drug screen was negative. Serum alcohol 32. Count 12.7. Hemoglobin 12.6. Creatinine 0.70. D-dimer 1.15. AST 142. ALT 123. A CT angiogram ruled out pulmonary embolism however there was evidence of emphysema and a cavitating infiltrate at the right paraspinal lower lobe. Mostly inflammatory however necrotic tumor could not fully be excluded. Echocardiogram revealed severely impaired left ventricular systolic function with ejection fraction 20-25%. There is severe pulmonary hypertension with a PA pressure of 56 mmHg. He had been seen and evaluated by cardiology in a cardiac catheterization was performed today that revealed a tight ostial LAD lesion right by the takeoff of the left main in the range of 90-95%. We are consulted regarding the abnormal findings on the CT angiogram. He is seen today in consultation on the selective care unit. He is currently awake and alert in no acute distress. He does admit to drinking and passing out most recently as of 08/19/2018. There may be evidence of aspiration pneumonia with inflammatory changes versus malignancy. He currently denies any chest pain, palpitations lightheadedness or dizziness. No shortness of breath, cough or congestion. No fever chills or night sweats. He is maintaining O2 saturations in the 90s on room air. He's afebrile. Hemodynamically stable. He is currently on a heparin drip. Cardiothoracic has been consulted. Review of Systems Eyes: denies blurred vision, denies decreased vision Ears, nose, mouth and throat: Denies headache, Denies sore throat Cardiovascular: Reports chest pain, Reports dyspnea on exertion, Reports shortness of breath Respiratory: Reports cough, Reports dyspnea Gastrointestinal: Denies abdominal pain, Denies diarrhea, Denies nausea, Denies vomiting Genitourinary: Reports as per HPI Musculoskeletal: Denies myalgias Integumentary: Denies pruritus, Denies rash Neurological: Denies numbness, Denies weakness Psychiatric: Denies anxiety, Denies depression Endocrine: Denies fatigue, Denies weight change Hematologic/Lymphatic: Reports as per HPI Allergic/Immunologic: Reports as per HPI Past Medical History Past Medical History: Asthma, Hypertension, Osteoarthritis (OA) Additional Past Medical History / Comment(s): pt states only drinks occasionally , pt states "drank fifth of vodka on 08/19/18" but before that states its been 2 months since he drank History of Any Multi-Drug Resistant Organisms: None Reported Past Surgical History: No Surgical Hx Reported Past Anesthesia/Blood Transfusion Reactions: No Reported Reaction Past Psychological History: No Psychological Hx Reported Smoking Status: Current every day smoker Past Alcohol Use History: Daily Additional Past Alcohol Use History / Comment(s): pt states only drinks occasionally, pt states "drank fifth of vodka on 08/19/18" but before that states its been 2 months since he drank. Past Drug Use History: Marijuana - Past Family History Father Family Medical History: Unable to Obtain Mother Family Medical History: Diabetes Mellitus Medications and Allergies Home Medications Medication Instructions Recorded Confirmed Type Albuterol Inhaler [Ventolin Hfa 1 puff INHALATION RT-Q6H 08/22/18 08/22/18 History Inhaler] Blood Pressure Med (Unknown) 1 tab PO DIRECTED 08/22/18 History Allergies Allergy/AdvReac Type Severity Reaction Status Date / Time No Known Allergies Allergy Verified 08/22/18 08:23 Physical Exam Vitals: Vital Signs Temp Pulse Pulse Resp BP BP BP 08/22/18 13:16 98.1 F 95 20 120/67 08/22/18 12:00 98.0 F 20 141/76 08/22/18 10:16 98.0 F 95 20 141/76 08/22/18 08:16 104 H 134/81 08/22/18 08:05 98.3 F 110 H 22 145/86 08/22/18 08:00 111 H 22 08/22/18 04:09 119 H 08/22/18 04:00 96.7 F L 113 H 18 142/75 08/22/18 03:57 119 H 08/22/18 03:30 109 H 7 L 168/87 08/22/18 03:20 112 H 23 168/87 08/22/18 03:17 96.7 F L 113 H 20 142/75 08/22/18 03:10 112 H 20 168/87 08/22/18 02:10 114 H 27 H 127/76 08/22/18 01:35 105 H 16 128/75 08/22/18 01:30 107 H 15 128/75 08/22/18 01:00 106 H 18 125/77 08/22/18 00:55 98.2 F 107 H 16 125/77 08/22/18 00:50 109 H 26 H 08/22/18 00:48 114 H 25 H Pulse Ox 08/22/18 13:16 94 L 08/22/18 12:00 94 L 08/22/18 10:16 94 L 08/22/18 08:16 08/22/18 08:05 95 08/22/18 08:00 08/22/18 04:09 08/22/18 04:00 95 08/22/18 03:57 08/22/18 03:30 92 L 08/22/18 03:20 93 L 08/22/18 03:17 95 08/22/18 03:10 93 L 08/22/18 02:10 08/22/18 01:35 97 08/22/18 01:30 97 08/22/18 01:00 96 08/22/18 00:55 97 08/22/18 00:50 08/22/18 00:48 Intake and Output 08/21/18 08/22/18 08/22/18 22:59 06:59 14:59 Intake Total 36 671.951 Output Total 2100 Balance 36 -1428.049 Intake: IV 36 100 Heparin Sod,Pork in 0.45% 36 NaCl 25,000 unit In 0.45 % NaCl 1 500ml.bag @ 12 UNITS/KG/HR 17.96 mls/hr IV .Q24H FELIPE Rx#: [id number] Intake, IV Titration 111.951 Amount Heparin Sod,Pork in 0.45% 111.951 NaCl 25,000 unit In 0.45 % NaCl 1 500ml.bag @ 12 UNITS/KG/HR 17.96 mls/hr IV .Q24H FELIPE Rx#: [id number] Oral 460 Output: Urine 2100 Other: Voiding Method Toilet Toilet # Voids 2 3 Weight 79.4 kg - Constitutional General appearance: average body habitus, disheveled - EENT Eyes: EOMI, PERRLA ENT: hearing grossly normal Ears: bilateral: normal - Neck Neck: normal ROM Carotids: bilateral: upstroke normal Thyroid: bilateral: normal size - Respiratory Respiratory: bilateral: CTA, diminished - Cardiovascular Rhythm: regular Heart sounds: normal: S1, S2 - Gastrointestinal General gastrointestinal: normal bowel sounds - Integumentary Integumentary: normal turgor - Neurologic Neurologic: CNII-XII intact - Musculoskeletal Musculoskeletal: generalized weakness - Psychiatric Psychiatric: A&O x's 3, appropriate affect, intact judgment & insight Results - Laboratory Findings CBC and BMP: 08/22/18 01:45 08/22/18 01:10 PT/INR, D-dimer PT 9.8 sec (9.0-12.0) 08/22/18 01:10 INR 1.0 (<1.2) 08/22/18 01:10 D-Dimer 1.15 mg/L FEU (<0.60) H 08/22/18 01:10 Abnormal lab findings: Abnormal Labs 08/22/18 08/22/18 08/22/18 01:10 01:10 01:10 WBC RBC Hgb Hct MCV Neutrophils # D-Dimer 1.15 H Carbon Dioxide 13 L POC Glucose (mg/dL) AST 142 H ALT 123 H Total Creatine Kinase CK-MB (CK-2) 3.0 H Troponin I 0.124 H* Urine Protein Urine Ketones 08/22/18 08/22/18 08/22/18 01:20 01:45 07:50 WBC 12.7 H RBC 3.71 L Hgb 12.6 L Hct 38.6 L MCV 104.1 H Neutrophils # 10.5 H D-Dimer Carbon Dioxide POC Glucose (mg/dL) AST ALT Total Creatine Kinase 188 H CK-MB (CK-2) 6.9 H Troponin I 1.180 H* Urine Protein Trace H Urine Ketones 2+ H 08/22/18 11:25 WBC RBC Hgb Hct MCV Neutrophils # D-Dimer Carbon Dioxide POC Glucose (mg/dL) 101 H AST ALT Total Creatine Kinase CK-MB (CK-2) Troponin I Urine Protein Urine Ketones - Diagnostic Findings Chest x-ray: image reviewed CT scan - chest: image reviewed Assessment and Plan Assessment: Impression: #1 Non-ST segment elevation myocardial infarction, status post cardiac catheterization revealing a 90-95% tight ostial lesion in the LAD near the takeoff of the left main. #2 Severe ischemic cardiomyopathy with ejection fraction less than 20%. #3 Cavitating infiltrate of the right. Spinal right lower lobe. Suspect inflammatory disease however cannot rule out necrotic tumor with malignancy. #4 Chronic and ongoing tobacco dependence of greater than 40 years at 1 pack per day with suspected chronic obstructive pulmonary disease. #5 History of alcohol abuse with recent episode of passing out and possible aspiration pneumonia. #6 Elevated LFTs suspect secondary to above. #7 History of hypertension. #8 Poor baseline functional performance. Plan: The patient was seen and evaluated by Dr. Arias. Chest x-ray, CAT scans and labs were all reviewed. Cardiac catheterization report reviewed. We will optimize his pulmonary medications for suspected COPD with ongoing tobacco dependence. Bedside spirometry for lung function. He is educated regarding the importance of complete smoking cessation. A NicoDerm patch will be applied. We'll add DuoNeb inhalations, Pulmicort and Perforomist inhalations. Add IV Solu-Medrol. We'll add Zosyn for suspected aspiration pneumonia versus possible malignancy. Continue heparin drip. We will continue to follow and make further recommendations based on his clinical status. I, the cosigning physician, performed a history & physical examination of the patient. Lungs sounds with few scattered rhonchi, end expiratory wheeze, diminished. Maintaining good O2 saturations in the 90s on room air. I discussed the assessment and plan of care with my nurse practitioner, Meron Cummins. I attest to the above note as dictated by her. Time with Patient: Greater than 30
[2018-08-22 15:19] LABS: Creatine Kinase MB 6.6 ng/mL (0.0-2.4)
[2018-08-22 15:22] LABS: Troponin I 1.52 ng/mL (0.000-0.034)
[2018-08-22 16:15] LABS: Glucose,Whole Blood 128 mg/dL (75-99)
[2018-08-22] MEDS: INSULIN ASPART 100 UNIT/ML 1 ML 10 ML VIAL SQ SCH ×2 (16:29→21:30)
[2018-08-22] MEDS: PIPERACILLIN-TAZOBACTAM 3.375 GM in DEXTROSE/WATER 1 50ML.BAG IVPB SCH ×2 (16:36→23:22)
[2018-08-22] MEDS: THIAMINE 100 MG TAB PO SCH (16:36)
[2018-08-22] MEDS: methylPREDNISolone SOD SUCCI 125 MG/2 ML VIAL IV SCH ×3 (16:36→23:21)
--- NOTE | 2018-08-22 17:30 | P.GSCN ---
History of Present Illness Consult date: 08/22/18 Reason for Consult: Critical ostial left anterior descending stenosis, surgical recommendations. Requesting physician: Laith Benito History of present illness: This is a 62-year-old active gentleman who does not follow with the primary care physician on a regular basis. He has a previous medical history of hypertension which he treats as needed, tobacco dependence since he was 14 years old, alcohol abuse and binge drinking, pneumonia as a child, occasional marijuana use, obesity, and family history of heart disease. He denies any history of diabetes, CVA, cancer, kidney disease. 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 He was walking out to his mailbox when he developed substernal chest pain with radiation to his left arm along with diaphoresis. He was concerned and called EMS. Upon arrival to [facility] emergency room, an EGD was completed which showed sinus rhythm with ST elevation in the anteroseptal leads. Troponins were elevated and patient was ruled in for a STEMI. He was recommended to undergo heart catheterization which was completed today and which demonstrated a critical lesion in the ostial LAD of 90-95%. In addition a transthoracic echocardiogram was completed demonstrating an ejection fraction of 20%, mild aortic insufficiency, mild mitral regurgitation, mild tricuspid regurgitation, and severe pulmonary hypertension. Due to the patient's symptoms and heart catheterization findings an urgent consult was placed for Dr. Reddy from cardiothoracic surgery for surgical revascularization recommendations. Review of Systems Review of systems was completed was negative except as noted. - Cardiovascular Reports as per HPI, Reports chest pain Past Medical History Past Medical History: Asthma, Hypertension, Osteoarthritis (OA) Additional Past Medical History / Comment(s): pt states only drinks occasionally , pt states "drank fifth of vodka on 08/19/18" but before that states its been 2 months since he drank History of Any Multi-Drug Resistant Organisms: None Reported Additional Past Surgical History / Comment(s): Patient had surgery on his jaw after it was broken Past Anesthesia/Blood Transfusion Reactions: No Reported Reaction Past Psychological History: No Psychological Hx Reported Smoking Status: Current every day smoker Past Alcohol Use History: Daily Additional Past Alcohol Use History / Comment(s): pt states only drinks occasionally, pt states "drank fifth of vodka on 08/19/18" but before that states its been 2 months since he drank. Past Drug Use History: Marijuana - Past Family History Father Family Medical History: Unable to Obtain Mother Family Medical History: Diabetes Mellitus Medications and Allergies Home Medications Medication Instructions Recorded Confirmed Type Albuterol Inhaler [Ventolin Hfa 1 puff INHALATION RT-Q6H 08/22/18 08/22/18 History Inhaler] Blood Pressure Med (Unknown) 1 tab PO DIRECTED 08/22/18 History Allergies Allergy/AdvReac Type Severity Reaction Status Date / Time No Known Allergies Allergy Verified 08/22/18 08:23 Surgical - Exam Vital Signs Pulse Resp 114 H 25 H 08/22/18 00:48 08/22/18 00:48 - General well developed, well nourished, no distress, no pain - Eyes PERRL, normal ocular movement - ENT Patient has no teeth and no dentures currently. - Neck no masses, no bruits, trachea midline - Respiratory Lungs sounds diminished bilaterally. Respirations even, nonlabored. Currently on room air with oxygen saturation 94%. No chest wall deformities. - Cardiovascular S1, S2 present. Regular rate and rhythm, sinus rhythm on telemetry. Palpable peripheral pulses bilaterally. No edema present. No calf pain or tenderness noted. Right radial heart catheterization site with Tband present. - Abdomen Abdomen: soft, non tender, bowel sounds - Genitourinary Deferred - Rectum Deferred - Integumentary no rash, no growths, no abnormal pigmentation - Neurologic normal coordination, normal sensation - Musculoskeletal normal gait, normal posture - Psychiatric oriented to time, oriented to person, oriented to place, speech is normal, memory intact Results - Labs 08/22/18 01:45 08/22/18 01:10 Abnormal Lab Results - Last 24 Hours (Table) 08/22/18 08/22/18 08/22/18 Range/Units 01:10 01:10 01:10 WBC (3.8-10.6) k/uL RBC (4.30-5.90) m/uL Hgb (13.0-17.5) gm/dL Hct (39.0-53.0) % MCV (80.0-100.0) fL Neutrophils # (1.3-7.7) k/uL APTT (22.0-30.0) sec D-Dimer 1.15 H (<0.60) mg/L FEU Carbon Dioxide 13 L (22-30) mmol/L POC Glucose (mg/dL) (75-99) mg/dL AST 142 H (17-59) U/L ALT 123 H (21-72) U/L Total Creatine Kinase (55-170) U/L CK-MB (CK-2) 3.0 H (0.0-2.4) ng/mL Troponin I 0.124 H* (0.000-0.034) ng/mL Urine Protein (Negative) Urine Ketones (Negative) 08/22/18 08/22/18 08/22/18 Range/Units 01:20 01:45 07:50 WBC 12.7 H (3.8-10.6) k/uL RBC 3.71 L (4.30-5.90) m/uL Hgb 12.6 L (13.0-17.5) gm/dL Hct 38.6 L (39.0-53.0) % MCV 104.1 H (80.0-100.0) fL Neutrophils # 10.5 H (1.3-7.7) k/uL APTT (22.0-30.0) sec D-Dimer (<0.60) mg/L FEU Carbon Dioxide (22-30) mmol/L POC Glucose (mg/dL) (75-99) mg/dL AST (17-59) U/L ALT (21-72) U/L Total Creatine Kinase 188 H (55-170) U/L CK-MB (CK-2) 6.9 H (0.0-2.4) ng/mL Troponin I 1.180 H* (0.000-0.034) ng/mL Urine Protein Trace H (Negative) Urine Ketones 2+ H (Negative) 08/22/18 08/22/18 08/22/18 Range/Units 11:25 14:20 14:20 WBC (3.8-10.6) k/uL RBC (4.30-5.90) m/uL Hgb (13.0-17.5) gm/dL Hct (39.0-53.0) % MCV (80.0-100.0) fL Neutrophils # (1.3-7.7) k/uL APTT 76.3 H (22.0-30.0) sec D-Dimer (<0.60) mg/L FEU Carbon Dioxide (22-30) mmol/L POC Glucose (mg/dL) 101 H (75-99) mg/dL AST (17-59) U/L ALT (21-72) U/L Total Creatine Kinase 202 H (55-170) U/L CK-MB (CK-2) 6.6 H (0.0-2.4) ng/mL Troponin I 1.520 H* (0.000-0.034) ng/mL Urine Protein (Negative) Urine Ketones (Negative) 08/22/18 Range/Units 16:10 WBC (3.8-10.6) k/uL RBC (4.30-5.90) m/uL Hgb (13.0-17.5) gm/dL Hct (39.0-53.0) % MCV (80.0-100.0) fL Neutrophils # (1.3-7.7) k/uL APTT (22.0-30.0) sec D-Dimer (<0.60) mg/L FEU Carbon Dioxide (22-30) mmol/L POC Glucose (mg/dL) 128 H (75-99) mg/dL AST (17-59) U/L ALT (21-72) U/L Total Creatine Kinase (55-170) U/L CK-MB (CK-2) (0.0-2.4) ng/mL Troponin I (0.000-0.034) ng/mL Urine Protein (Negative) Urine Ketones (Negative) Diabetes panel 08/22/18 Range/Units 01:10 Sodium 138 (137-145) mmol/L Potassium 4.6 (3.5-5.1) mmol/L Chloride 103 (98-107) mmol/L Carbon Dioxide 13 L (22-30) mmol/L BUN 17 (9-20) mg/dL Creatinine 0.70 (0.66-1.25) mg/dL Glucose 81 (74-99) mg/dL Calcium 9.2 (8.4-10.2) mg/dL AST 142 H (17-59) U/L ALT 123 H (21-72) U/L Alkaline Phosphatase 89 (38-126) U/L Total Protein 7.4 (6.3-8.2) g/dL Albumin 4.6 (3.5-5.0) g/dL Calcium panel 08/22/18 Range/Units 01:10 Calcium 9.2 (8.4-10.2) mg/dL Albumin 4.6 (3.5-5.0) g/dL Pituitary panel 08/22/18 Range/Units 01:10 Sodium 138 (137-145) mmol/L Potassium 4.6 (3.5-5.1) mmol/L Chloride 103 (98-107) mmol/L Carbon Dioxide 13 L (22-30) mmol/L BUN 17 (9-20) mg/dL Creatinine 0.70 (0.66-1.25) mg/dL Glucose 81 (74-99) mg/dL Calcium 9.2 (8.4-10.2) mg/dL Adrenal panel 08/22/18 Range/Units 01:10 Sodium 138 (137-145) mmol/L Potassium 4.6 (3.5-5.1) mmol/L Chloride 103 (98-107) mmol/L Carbon Dioxide 13 L (22-30) mmol/L BUN 17 (9-20) mg/dL Creatinine 0.70 (0.66-1.25) mg/dL Glucose 81 (74-99) mg/dL Calcium 9.2 (8.4-10.2) mg/dL Total Bilirubin 0.6 (0.2-1.3) mg/dL AST 142 H (17-59) U/L ALT 123 H (21-72) U/L Alkaline Phosphatase 89 (38-126) U/L Total Protein 7.4 (6.3-8.2) g/dL Albumin 4.6 (3.5-5.0) g/dL - Imaging Chest x-ray: report reviewed, image reviewed CT scan - chest: report reviewed, image reviewed EKG: image reviewed Additional studies: Heart catheterization, echocardiogram films reviewed. Pulmonary function test reviewed. Assessment and Plan (1) STEMI (ST elevation myocardial infarction) Current Visit: Yes Status: Acute Code(s): I21.3 - ST ELEVATION (STEMI) MYOCARDIAL INFARCTION OF UNS SITE SNOMED Code(s): 293440601 (2) Coronary artery disease Current Visit: Yes Status: Chronic Code(s): I25.10 - ATHSCL HEART DISEASE OF [place] CORONARY ARTERY W/O ANG PCTRS SNOMED Code(s): 00155971 (3) COPD, severe Current Visit: Yes Status: Chronic Code(s): J44.9 - CHRONIC OBSTRUCTIVE PULMONARY DISEASE, UNSPECIFIED SNOMED Code(s): 515759042 (4) Marijuana use, episodic Current Visit: Yes Status: Chronic Code(s): F12.90 - CANNABIS USE, UNSPECIFIED, UNCOMPLICATED SNOMED Code(s): 705286829 (5) Alcohol abuse Current Visit: Yes Status: Chronic Code(s): F10.10 - ALCOHOL ABUSE, UNCOMPLICATED SNOMED Code(s): 63743258 (6) HTN (hypertension) Current Visit: Yes Status: Chronic Code(s): I10 - ESSENTIAL (PRIMARY) HYPERTENSION SNOMED Code(s): 87907747 (7) Tobacco abuse Current Visit: Yes Status: Chronic Code(s): Z72.0 - TOBACCO USE SNOMED Code(s): 455461116 Plan: The patient was seen and examined on the cardiac stepdown unit with Dr. Reddy. Chart/diagnostics were reviewed. Multiple discussions were held between Dr. Reddy, Dr. Benito, and Dr. Arias. The patient is currently chest pain-free in no distress. He did have a CTA of the chest in the emergency room which didn't show any pulmonary embolism but did show evidence of emphysema with a cavitating infiltrate in the right paraspinal lower lobe which may be inflammatory but potentially could be infectious or a tumor. Dr. Arias felt this could potentially be aspiration pneumonia from his binge drinking. Pulmonary function test was completed, FEV1 was 40% of predicted indicating severe COPD. This patient would be considered very high risk for surgical intervention at this point in time. It was felt that the patient needed some time on antibiotics and steroids to maximize his pulmonary function. We would be willing to do surgery after a few days of pulmonary and medical maximization. If unable to wait, our recommendation would be for high-risk PCI with Impella utilization. This was discussed with Dr. Benito, he indicated he would likely perform high-risk PCI with Impella. We would recommend smoking cessation, alcohol cessation, compliance with medical therapy. Thank you Dr. Benito this consult. Please call us with any questions. Time with Patient: Greater than 30
[2018-08-22] MEDS ORDERED: SYMBICORT 160-4.5 MCG INHALER INHALATION SCH (20:00)
[2018-08-22 20:33] LABS: Hemoglobin A1C 5.4 % (4.0-6.0)
[2018-08-22] MEDS: IPRATROPIUM-ALBUTEROL 3 ML NEB INHALATION PRN (20:44)
[2018-08-22] MEDS: FORMOTEROL FUMARATE 20 MCG/2 ML NEBU INHALATION SCH (20:44)
[2018-08-22] MEDS: BUDESONIDE 1 MG/2 ML NEBU INHALATION SCH (20:44)
[2018-08-22 21:22] LABS: Glucose,Whole Blood 199 mg/dL (75-99)
[2018-08-23] MEDS: HEPARIN SOD,PORK IN 0.45% NACL 25,000 UNIT in 0.45% NACL 1 500ML.BAG IV SCH (03:47)
[2018-08-23 05:48] LABS: Glucose,Whole Blood 168 mg/dL (75-99)
[2018-08-23] MEDS ORDERED: NITROGLYCERIN SL TABS 0.4 MG TAB SUBLINGUAL PRN ×2 (06:39→12:09)
[2018-08-23] MEDS ORDERED: ALPRAZolam 0.25 MG TAB PO PRN (06:39)
[2018-08-23] MEDS ORDERED: ALPRAZolam 0.5 MG TAB PO PRN (06:39)
[2018-08-23] MEDS ORDERED: ATORVASTATIN 80 MG TAB PO STA (06:39)
[2018-08-23] MEDS ORDERED: ASPIRIN 325 MG TAB PO STA (06:39)
[2018-08-23] MEDS: methylPREDNISolone SOD SUCCI 125 MG/2 ML VIAL IV SCH ×3 (06:42→17:54)
[2018-08-23] MEDS: PANTOPRAZOLE 40 MG TABLET PO SCH (06:42)
[2018-08-23] MEDS: INSULIN ASPART 100 UNIT/ML 1 ML 10 ML VIAL SQ SCH ×4 (06:42→20:56)
[2018-08-23] MEDS: ATORVASTATIN 80 MG TAB PO SCH (06:50)
[2018-08-23] MEDS: SODIUM CHLORIDE 0.9% 1,000 ML in EMPTY BAG 1 BAG IV ONE ×2 (07:43→14:22)
[2018-08-23] MEDS: METOPROLOL TARTRATE 25 MG TAB PO SCH ×2 (07:43→20:56)
[2018-08-23] MEDS: MULTIVITAMINS, THERA 1 EACH TAB PO SCH (07:43)
[2018-08-23] MEDS: THIAMINE 100 MG TAB PO SCH ×2 (07:43→16:54)
[2018-08-23] MEDS: IPRATROPIUM-ALBUTEROL 3 ML NEB INHALATION PRN ×3 (07:44→20:30)
[2018-08-23] MEDS: BUDESONIDE 1 MG/2 ML NEBU INHALATION SCH ×2 (07:44→20:30)
[2018-08-23] MEDS: FORMOTEROL FUMARATE 20 MCG/2 ML NEBU INHALATION SCH ×2 (07:44→20:30)
[2018-08-23] MEDS: NICOTINE 14MG/24HR PATCH TRANSDERM SCH (07:45)
[2018-08-23] MEDS: PIPERACILLIN-TAZOBACTAM 3.375 GM in DEXTROSE/WATER 1 50ML.BAG IVPB SCH ×2 (07:48→16:53)
--- NOTE | 2018-08-23 08:38 | P.PN ---
Subjective Progress Note Date: 08/23/18 Principal diagnosis: Acute non-ST elevation myocardial infarction This is a pleasant 62-year-old gentleman with a past medical history significant for hypertension, dyslipidemia, and significant history of smoking, was admitted to the hospital with a chest discomfort and ruled in for acute coronary syndrome. The troponin came in to be elevated. The EKG did show ischemic ST and T wave abnormalities. Because of that and because of the ongoing chest discomfort the patient did undergo a heart catheterization yesterday which revealed critical disease involving the ostial left anterior descending artery. The echocardiogram revealed severely impaired LV function with EF of 20%. I did consult cardiothoracic surgeon. The patient also was seen by the pulmonary team and he did undergo pulmonary function test which came in to be significantly abnormal. The chest x-ray showed finding consistent with possible cavitation in the right upper lobe. During that, I would pursue with percutaneous coronary intervention on the LAD later on today. I will do the procedure with adjunctive use of impella. I did have a long discussion with the patient today regarding the procedure in details and he understand that the procedure is at higher risk given the location of the disease. Objective - Vital Signs Vital signs: Vital Signs Temp 96.8 F L 08/23/18 07:49 Pulse 100 08/23/18 08:10 Resp 20 08/23/18 07:51 BP 133/70 08/23/18 07:49 Pulse Ox 96 08/23/18 07:49 Intake & Output 08/22/18 08/23/18 08/23/18 18:59 06:59 18:59 Intake Total 984.165 266.221 Output Total 2100 200 Balance -1115.835 66.221 Weight 75.3 kg Intake: IV 100 51 Heparin Sod,Pork in 0.45% 51 NaCl 25,000 unit In 0.45 % NaCl 1 500ml.bag @ 12 UNITS/KG/HR 17.96 mls/hr IV .Q24H FELIPE Rx#: [id number] Intake, IV Titration 184.165 215.221 Amount Heparin Sod,Pork in 0.45% 184.165 215.221 NaCl 25,000 unit In 0.45 % NaCl 1 500ml.bag @ 12 UNITS/KG/HR 17.96 mls/hr IV .Q24H FELIPE Rx#: [id number] Oral 700 Output: Urine 2100 200 Other: Voiding Method Toilet Toilet Toilet # Voids 3 1 - Constitutional General appearance: Present: no acute distress - Respiratory Respiratory: bilateral: CTA - Cardiovascular Rhythm: regular Heart sounds: normal: S1, S2 - Labs CBC & Chem 7: 08/22/18 01:45 08/22/18 01:10 Labs: Abnormal Lab Results - Last 24 Hours (Table) 08/22/18 08/22/18 08/22/18 Range/Units 07:50 11:25 14:20 APTT (22.0-30.0) sec POC Glucose (mg/dL) 101 H (75-99) mg/dL Total Creatine Kinase 188 H 202 H (55-170) U/L CK-MB (CK-2) 6.9 H 6.6 H (0.0-2.4) ng/mL Troponin I 1.180 H* 1.520 H* (0.000-0.034) ng/mL 08/22/18 08/22/18 08/22/18 Range/Units 14:20 16:10 21:21 APTT 76.3 H (22.0-30.0) sec POC Glucose (mg/dL) 128 H 199 H (75-99) mg/dL Total Creatine Kinase (55-170) U/L CK-MB (CK-2) (0.0-2.4) ng/mL Troponin I (0.000-0.034) ng/mL 08/23/18 Range/Units 05:47 APTT (22.0-30.0) sec POC Glucose (mg/dL) 168 H (75-99) mg/dL Total Creatine Kinase (55-170) U/L CK-MB (CK-2) (0.0-2.4) ng/mL Troponin I (0.000-0.034) ng/mL Assessment and Plan Assessment: Assessment #1 acute non-ST patient myocardial infarction #2 severe ischemic cardiomyopathy #3 significant history of smoking #4 chronic obstructive pulmonary disease Plan #1 continue the current medical regimen #2 PCI of the LAD later on today #3 follow-up with the patient.
[2018-08-23] MEDS ORDERED: ASPIRIN 325 MG TAB PO SCH (09:00)
--- NOTE | 2018-08-23 09:34 | P.PN ---
Subjective Progress Note Date: 08/23/18 Principal diagnosis: NSTEMI Patient was seen and examined. No acute events overnight. He is informed about the results of the cardiac catheterization. Patient is nothing by mouth for PCI today. He reports no chest pain at this time. No dizziness, shortness of breath or palpitations. He has no other complaints this morning. Objective - Vital Signs Vital signs: Vital Signs Temp 96.8 F L 08/23/18 07:49 Pulse 100 08/23/18 08:10 Resp 20 08/23/18 07:51 BP 133/70 08/23/18 07:49 Pulse Ox 96 08/23/18 07:49 Intake & Output 08/22/18 08/23/18 08/23/18 18:59 06:59 18:59 Intake Total 984.165 266.221 Output Total 2100 200 Balance -1115.835 66.221 Weight 75.3 kg Intake: IV 100 51 Heparin Sod,Pork in 0.45% 51 NaCl 25,000 unit In 0.45 % NaCl 1 500ml.bag @ 12 UNITS/KG/HR 17.96 mls/hr IV .Q24H FELIPE Rx#: [id number] Intake, IV Titration 184.165 215.221 Amount Heparin Sod,Pork in 0.45% 184.165 215.221 NaCl 25,000 unit In 0.45 % NaCl 1 500ml.bag @ 12 UNITS/KG/HR 17.96 mls/hr IV .Q24H FELIPE Rx#: [id number] Oral 700 Output: Urine 2100 200 Other: Voiding Method Toilet Toilet Toilet # Voids 3 1 - Exam General: [non toxic], [no distress], [appears at stated age] Derm: [warm], [dry] Head: [atraumatic], [normocephalic], [symmetric] Eyes: [EOMI], [no lid lag], [anicteric sclera] Mouth: [no lip lesion], [mucus membranes moist] Cardiovascular: [S1S2 reg], [no murmur], [positive DP pulse bilateral] Lungs: [Mild expiratory wheezing bilateral], [no rhonchi, no rales] , [no accessory muscle use] Abdominal: [soft], [ nontender to palpation], [no guarding], [no appreciable organomegaly] Ext: [no gross muscle atrophy], [no edema], [no contractures] Neuro: [no focal neuro deficits] Psych: [Alert], [oriented], [appropriate affect] - Labs CBC & Chem 7: 08/22/18 01:45 08/22/18 01:10 Labs: Abnormal Lab Results - Last 24 Hours (Table) 08/22/18 08/22/18 08/22/18 Range/Units 11:25 14:20 14:20 APTT 76.3 H (22.0-30.0) sec POC Glucose (mg/dL) 101 H (75-99) mg/dL Total Creatine Kinase 202 H (55-170) U/L CK-MB (CK-2) 6.6 H (0.0-2.4) ng/mL Troponin I 1.520 H* (0.000-0.034) ng/mL 08/22/18 08/22/18 08/23/18 Range/Units 16:10 21:21 05:47 APTT (22.0-30.0) sec POC Glucose (mg/dL) 128 H 199 H 168 H (75-99) mg/dL Total Creatine Kinase (55-170) U/L CK-MB (CK-2) (0.0-2.4) ng/mL Troponin I (0.000-0.034) ng/mL Assessment and Plan Assessment: 1. NSTEMI: Concerns for ACS. Troponin 0.124, 1.180, 1.520 with EKG showing Q waves in lead 3. D-Dimer 1.15, CTA chest shows no PE. CXR shows COPD and pulmonary fibrosis. Echocardiogram shows an EF of 20-25%, LVH. Cardiac catheterization shows 50% occlusion of the OM branch, 90-95% occlusion of the ostial LAD. Cardiothoracic surgery consulted - patient is high risk for surgery and will need pulmonary and medical maximization prior to surgery. Decision for cardiology to perform high risk PCI with Impella. Patient is nothing by mouth for PCI today. Continue ASA 325 mg PO QD, Lipitor 80 mg PO QHS. Continue Heparin drip. Nitrostat PRN for chest pain. Continue Metoprolol 25 mg PO BID. Telemetry monitoring. FU Cardiology, Lipid panel 2. Lung mass: CTA chest shows Emphysema and a cavitating infiltrate in the RLL ( necrotic tumor cannot be ruled out). Piperacillin/Tazobactam 3.375g IV TID for concerns for aspiration PNA. Will likely need repeat imaging in the future. FU Pulmonology 3. COPD: Seen on CTA Chest and CXR with a long smoking history. Patient started on DuoNeb QID PRN, Budesonide 1 puff BID, Formoterol 1 puff BID, SoluMedrol 60 mg IV Q6H for pulmonary optimization. O2 per NC to maintain O2 sat > 92%. FU Pulmonology 4. Decreased HCO3: HCO3 13. Likely Non-AG metabolic acidosis 2/2 EtOH abuse. Patient is not in respiratory distress. Daily CMP, monitor vitals for a change in status. 5. EtOH abuse: Last drink of Monday. Denies WD symptoms. CIWA protocol. Ativan IV PRN for CIWA > 8. Continue MVI 1 tab PO QD, Thiamine 100 mg PO BID. 6. Tachycardia: Possibly related to EtOH abuse or NSTEMI. HR 100-119. PE ruled out. ACS workup underway. Possibly related to EtOH abuse. Continue Metoprolol 25 mg PO BID. Telemetry monitoring. Keep Mg > 2, K > 4. Will continue to monitor. 7. Leukocytosis: WBC 12.7. Mild. Patient is afebrile with no signs of infection. Likely reactive. Daily CBC. 8. Anemia: Hg 12.6 Hct 38.6 MCV 104.1. Likely related to EtOH abuse. Transfuse if Hg < 7.0. FU B12/Folate, Ferritin, Iron studies 9. Transaminiitis: AST 142, ALT 123. T. Bili and ALKP is within normal limits, no obstruction. Likely related to EtOH abuse. Daily CMP. 10. Nicotine dependance: Start Habitrol 14 mg TRANSDERM QD. 11. DVT/GI Prophylaxis: Heparin drip. Start Protonix 40 mg PO QD. Patient scheduled for PCI today. He is high risk for this procedure. Patient states that he wishes to remain full code.
[2018-08-23 09:52] LABS: Basophils % (A) 0 %; Eosinophils % (A) 0 %; HCT 43.2 % (39.0-53.0); Lymphocytes # (A) 0.7 k/uL (1.0-4.8); Lymphocytes % (A) 13 %; MCH 33.6 pg (25.0-35.0); MCHC 32.4 g/dL (31.0-37.0); MCV 103.6 fL (80.0-100.0); Macrocytosis Slight; Mean Platelet Volume 8.7; Monocytes # (A) 0.1 k/uL (0-1.0); Monocytes % (A) 2 %; Neutrophils # (A) 4.8 k/uL (1.3-7.7); Neutrophils % (A) 85 %; Platelet Count 365 k/uL (150-450); RBC 4.17 m/uL (4.30-5.90); RDW 13.3 % (11.5-15.5); WBC 5.6 k/uL (3.8-10.6)
[2018-08-23 10:00] LABS: Partial Thromboplastin Time 27.8 sec (22.0-30.0)
[2018-08-23] MEDS ORDERED: LIDOCAINE 1% INJ 10MG/ML (20 ML MDV) ONE (10:19)
[2018-08-23] MEDS ORDERED: MIDAZOLAM 2 MG/2 ML VIAL ONE (10:19)
[2018-08-23] MEDS ORDERED: niCARdipine 25 MG/10 ML VIAL ONE (10:23)
[2018-08-23] MEDS ORDERED: IV FLUID CONTINUATION 1,000 ML IV ONE (10:23)
[2018-08-23 10:33] LABS: ALT 89 U/L (21-72); AST 75 U/L (17-59); Albumin 4.4 g/dL (3.5-5.0); Alkaline Phosphatase 85 U/L (38-126); Anion Gap 9 mmol/L; Blood Urea Nitrogen 19 mg/dL (9-20); Carbon Dioxide 27 mmol/L (22-30); Chloride 101 mmol/L (98-107); Cholesterol 220 mg/dL (<200); Glucose 137 mg/dL (74-99); HDL Cholesterol 107 mg/dL (40-60); LDL Cholesterol,Calculated 99 mg/dL (0-99); Potassium 5.5 mmol/L (3.5-5.1); Sodium 137 mmol/L (137-145); Total Bilirubin 0.6 mg/dL (0.2-1.3); Total Protein 7.5 g/dL (6.3-8.2); Triglycerides 69 mg/dL (<150)
[2018-08-23] MEDS ORDERED: MIDAZOLAM 2 MG/2 ML VIAL IVP ONE (10:33)
[2018-08-23] MEDS ORDERED: LIDOCAINE 1% INJ 10MG/ML (20 ML MDV) SQ ONE (10:40)
[2018-08-23] MEDS ORDERED: BIVALIRUDIN BOLUS 250 MG/50 ML IV ONE ×2 (10:54)
[2018-08-23] MEDS ORDERED: BIVALIRUDIN 250 MG in SODIUM CHLORIDE 0.9% 35 ML IV ONE (10:56)
[2018-08-23] MEDS ORDERED: fentaNYL (PF) 50 MCG/ML 2 ML AMP ONE (10:58)
[2018-08-23] MEDS: fentaNYL (PF) 50 MCG/ML 2 ML AMP IVP ONE ×2 (11:04→11:41)
[2018-08-23] MEDS ORDERED: TICAGRELOR 90 MG TAB ONE (11:47)
[2018-08-23] MEDS ORDERED: TICAGRELOR 90 MG TAB PO ONE (11:48)
[2018-08-23] MEDS ORDERED: IOPAMIDOL-370 125ML BTL INJ ONE (11:52)
[2018-08-23] MEDS ORDERED: fentaNYL (PF) 50 MCG/ML 2 ML AMP IV ONE (11:58)
[2018-08-23] MEDS ORDERED: MAG HYDROX/AL HYDROX/SIMETH 30 ML CUP PO PRN (12:09)
[2018-08-23] MEDS ORDERED: ATROPINE SULFATE 0.1 MG/ML 10ML SYRINGE IV PRN (12:09)
[2018-08-23] MEDS ORDERED: ZOLPIDEM 5 MG TAB PO PRN (12:09)
[2018-08-23] MEDS ORDERED: RX INFO: IV CONTRAST WAS GIVEN 1 EACH MISC MISCELLANE PRN (12:09)
[2018-08-23] MEDS ORDERED: SODIUM CHLORIDE 0.9% 1,000 ML IV SCH (12:15)
[2018-08-23 12:28] LABS: Glucose,Whole Blood 166 mg/dL (75-99)
--- NOTE | 2018-08-23 12:54 | ECHOF ---
ECHOCARDIOGRAM DATE OF SERVICE: 08/23/2018 PERFORMING PHYSICIAN: Laith Benito MD, Railroad Signal Technician. PROCEDURE PERFORMED: 1. Successful placement of Interlock 2.5. 2. An atherectomy of the ostial left anterior descending artery using the orbital atherectomy device from [employer]. 3. Successful stenting of the ostial/proximal LAD using 4.0 x 15 mm Xience ROXANA with excellent angiographic results. INDICATION: This is a pleasant 62-year-old gentleman who presented to the hospital with chest discomfort and ruled in for acute non ST elevation myocardial infarction. He underwent a heart catheterization yesterday and the patient was found to have critical disease involving the ostial left anterior descending artery, which was calcified LAD. He was seen by a cardiothoracic surgeon, but the patient turned to be a high risk for surgery in view of his chronic lung disease as well as possible cavitation in the right leg and infection as well. Because of that, PCI was advised. APPROACH: Right common femoral artery and left common femoral artery. COMPLICATION: None. LEVEL OF SEDATION: Moderate with sedation length of 18 minutes. PROCEDURE DESCRIPTION: After obtaining an informed consent, the patient was brought to the cardiac microbiological laboratory technician. The right common femoral artery was cannulated using a micropuncture technique. The micropuncture wire passed easily, then I placed a 6-Cymraes sheath in the right common femoral artery. After that, I did deploy two Perclose, one at 10 o'clock and one at 2 o'clock. After that, I did place a 14-Cymraes 23 cm in the right common femoral artery using an Amplatzer wire. Subsequently, I did advance the Interlock 2.5 to the left ventricle. The interlock was at that point, turned on. After that, I did cannulate the left common femoral artery using micropuncture technique and a micropuncture wire passed easily. Then I placed a 6-Cymraes sheath in the left common femoral artery. After that, I did start anticoagulation using Angiomax. Subsequently, I did engage the left main using a JL short-tipped guide. I did wire the left circumflex using a run-through wire and I did wire the LAD using a whisper wire. After that, I did exchange my Whisper wire into ViperWire using a Super Cross catheter. After that I did atherectomy of the ostial LAD using the orbital atherectomy device from [employer]. Subsequently, I did balloon angioplasty using 3.5 mm balloon before I deployed 4.0 x 15 mm stent. The stent was positioned under fluoroscopy guidance and deployed under 12 atmospheres for 20 seconds. The following angiogram showed good angiographic results and the procedure was completed at that point without any complication. POST-PROCEDURE MANAGEMENT: 1. Dual anti-platelet therapy. 2. Risk factor modifications. 3. Follow up with the patient. MMBABAR / YOVANY: [id number] /
[2018-08-23 13:23] LABS: Glucose,Whole Blood 149 mg/dL (75-99)
--- NOTE | 2018-08-23 13:49 | P.PN ---
Subjective Progress Note Date: 08/23/18 Principal diagnosis: Acute non-ST segment elevation myocardial infarction. This is a pleasant 62-year-old gentleman who has a history of hypertension and a 48 year pack per day smoking history. He also has occasional alcohol use and recently drank a fifth and passed out. He presented here early this morning with complaints of chest pain. EKG showed STT wave changes noted in the anterior leads. His troponins were borderline positive at 0.124 and 0.180 just above non-Q-wave myocardial infarction. ProBNP level 1530. Urine drug screen was negative. Serum alcohol 32. Count 12.7. Hemoglobin 12.6. Creatinine 0.70. D-dimer 1.15. AST 142. ALT 123. A CT angiogram ruled out pulmonary embolism however there was evidence of emphysema and a cavitating infiltrate at the right paraspinal lower lobe. Mostly inflammatory however necrotic tumor could not fully be excluded. Echocardiogram revealed severely impaired left ventricular systolic function with ejection fraction 20-25%. There is severe pulmonary hypertension with a PA pressure of 56 mmHg. He had been seen and evaluated by cardiology in a cardiac catheterization was performed today that revealed a tight ostial LAD lesion right by the takeoff of the left main in the range of 90-95%. We are consulted regarding the abnormal findings on the CT angiogram. He is seen today in consultation on the selective care unit. He is currently awake and alert in no acute distress. He does admit to drinking and passing out most recently as of 08/19/2018. There may be evidence of aspiration pneumonia with inflammatory changes versus malignancy. He currently denies any chest pain, palpitations lightheadedness or dizziness. No shortness of breath, cough or congestion. No fever chills or night sweats. He is maintaining O2 saturations in the 90s on room air. He's afebrile. Hemodynamically stable. He is currently on a heparin drip. Cardiothoracic has been consulted. The patient is seen again today 08/23/2018 in follow-up in the intensive care unit. He did end up going down for successful placement of Interlock 2.5, atherectomy of the ostial left anterior descending artery using the orbital atherectomy device from [employer] and successful stenting of the ostial/proximal LAD utilizing a 4.0 x 15 mm science ROXANA with excellent results by Dr. Benito today. He is currently resting comfortably in bed. He is awake and alert in no acute distress. He denies any worsening shortness of breath. No chest pain or palpitations. He is currently maintaining good O2 saturations in the mid 90s on room air. He's been afebrile. Hemodynamically stable. White count 5.6. Hemoglobin 14.0. Creatinine 0.89. Objective - Vital Signs Vital signs: Vital Signs Temp 98.0 F 08/23/18 12:30 Pulse 86 08/23/18 12:40 Resp 14 08/23/18 12:40 BP 142/96 08/23/18 12:40 Pulse Ox 96 08/23/18 12:40 Intake & Output 08/22/18 08/23/18 08/23/18 18:59 06:59 18:59 Intake Total 984.165 266.221 335.614 Output Total 2100 200 Balance -1115.835 66.221 335.614 Weight 75.3 kg Intake: IV 100 51 235 Heparin Sod,Pork in 0.45% 51 NaCl 25,000 unit In 0.45 % NaCl 1 500ml.bag @ 12 UNITS/KG/HR 17.96 mls/hr IV .Q24H [facility] Rx#: [id number] Intake, IV Titration 184.165 215.221 100.614 Amount Heparin Sod,Pork in 0.45% 184.165 215.221 100.614 NaCl 25,000 unit In 0.45 % NaCl 1 500ml.bag @ 12 UNITS/KG/HR 17.96 mls/hr IV .Q24H [facility] Rx#: [id number] Oral 700 Output: Urine 2100 200 Other: Voiding Method Toilet Toilet Toilet # Voids 3 1 - Exam GENERAL EXAM: Alert, resting flat in bed, comfortable in no apparent distress. HEAD: Normocephalic. EYES: Normal reaction of pupils, equal size. NOSE: Clear with pink turbinates. THROAT: No erythema or exudates. NECK: No masses, no JVD. CHEST: No chest wall deformity. LUNGS: Equal air entry with no crackles, wheeze, rhonchi or dullness. CVS: S1 and S2 normal with an audible murmur, regular rhythm. ABDOMEN: No hepatosplenomegaly, normal bowel sounds, no guarding or rigidity. SPINE: No scoliosis or deformity SKIN: No rashes CENTRAL NERVOUS SYSTEM: No focal deficits, tone is normal in all 4 extremities. EXTREMITIES: Bilateral groin dressings dry and intact. There is no peripheral edema. No clubbing, no cyanosis. Peripheral pulses are intact. - Labs CBC & Chem 7: 08/23/18 08:00 08/23/18 08:00 Labs: Abnormal Lab Results - Last 24 Hours (Table) 08/22/18 08/22/18 08/22/18 Range/Units 14:20 14:20 16:10 RBC (4.30-5.90) m/uL MCV (80.0-100.0) fL Lymphocytes # (1.0-4.8) k/uL APTT 76.3 H (22.0-30.0) sec Potassium (3.5-5.1) mmol/L Glucose (74-99) mg/dL POC Glucose (mg/dL) 128 H (75-99) mg/dL AST (17-59) U/L ALT (21-72) U/L Total Creatine Kinase 202 H (55-170) U/L CK-MB (CK-2) 6.6 H (0.0-2.4) ng/mL Troponin I 1.520 H* (0.000-0.034) ng/mL Cholesterol (<200) mg/dL HDL Cholesterol (40-60) mg/dL 08/22/18 08/23/18 08/23/18 Range/Units 21:21 05:47 08:00 RBC 4.17 L (4.30-5.90) m/uL MCV 103.6 H (80.0-100.0) fL Lymphocytes # 0.7 L (1.0-4.8) k/uL APTT (22.0-30.0) sec Potassium (3.5-5.1) mmol/L Glucose (74-99) mg/dL POC Glucose (mg/dL) 199 H 168 H (75-99) mg/dL AST (17-59) U/L ALT (21-72) U/L Total Creatine Kinase (55-170) U/L CK-MB (CK-2) (0.0-2.4) ng/mL Troponin I (0.000-0.034) ng/mL Cholesterol (<200) mg/dL HDL Cholesterol (40-60) mg/dL 08/23/18 08/23/18 08/23/18 Range/Units 08:00 12:24 13:22 RBC (4.30-5.90) m/uL MCV (80.0-100.0) fL Lymphocytes # (1.0-4.8) k/uL APTT (22.0-30.0) sec Potassium 5.5 H (3.5-5.1) mmol/L Glucose 137 H (74-99) mg/dL POC Glucose (mg/dL) 166 H 149 H (75-99) mg/dL AST 75 H (17-59) U/L ALT 89 H (21-72) U/L Total Creatine Kinase (55-170) U/L CK-MB (CK-2) (0.0-2.4) ng/mL Troponin I (0.000-0.034) ng/mL Cholesterol 220 H (<200) mg/dL HDL Cholesterol 107 H (40-60) mg/dL Assessment and Plan Assessment: Impression: #1 Non-ST segment elevation myocardial infarction, status post cardiac catheterization revealing a 90-95% tight ostial lesion in the LAD near the takeoff of the left main. On 08/23/2018 he underwent successful placement of an Interlock 2.5, atherectomy of the ostial left anterior descending artery utilizing the orbital atherectomy device from [employer] and successful stenting of the ostial/proximal LAD utilizing a 4.0 x 15 mm Xience ROXANA with excellent angiographic results. #2 Severe ischemic cardiomyopathy with ejection fraction less than 20%. #3 Cavitating infiltrate of the right. Spinal right lower lobe. Suspect inflammatory disease however cannot rule out necrotic tumor with malignancy. #4 Chronic and ongoing tobacco dependence of greater than 40 years at 1 pack per day with suspected chronic obstructive pulmonary disease. #5 History of alcohol abuse with recent episode of passing out and possible aspiration pneumonia. #6 Elevated LFTs suspect secondary to above. #7 History of hypertension. #8 Poor baseline functional performance. Plan: The patient was seen and evaluated by Dr. Arias. Cardiac slabber report reviewed. He has been initiated on Brilinta. We will continue his pulmonary medications for suspected COPD with ongoing tobacco dependence. He is again educated regarding the importance of complete smoking cessation. A NicoDerm patch applied. We'll continue DuoNeb inhalations, Pulmicort and Perforomist inhalations. Continue IV Solu-Medrol. We'll continue Zosyn for suspected aspiration pneumonia versus possible malignancy. Repeat chest x-ray in the a.m. We will continue to follow and make further recommendations based on his clinical status. I, the cosigning physician, performed a history & physical examination of the patient. Lungs sounds with few scattered rhonchi, end expiratory wheeze, diminished. Maintaining good O2 saturations in the 90s on room air. I discussed the assessment and plan of care with my nurse practitioner, Meron Cummins. I attest to the above note as dictated by her.
[2018-08-23 15:52] LABS: Iron Saturation 101.87 (15.00-50.00)
[2018-08-23 16:00] LABS: Folate, Serum 12.3 ng/mL
[2018-08-23 17:24] LABS: Glucose,Whole Blood 171 mg/dL (75-99)
[2018-08-23] MEDS ORDERED: diphenhydrAMINE 25 MG CAP PO PRN (20:12)
[2018-08-23] MEDS ORDERED: ACETAMINOPHEN TAB 500 MG TAB PO PRN (20:14)
[2018-08-23] MEDS: TICAGRELOR 90 MG TAB PO SCH (20:56)
[2018-08-23 21:05] LABS: Glucose,Whole Blood 141 mg/dL (75-99)
[2018-08-24] MEDS ORDERED: NICOTINE POLACRILEX 2 MG GUM BUCCAL PRN (00:13)
[2018-08-24] MEDS ORDERED: BISACODYL 10 MG SUPP RECTAL STA (00:14)
[2018-08-24] MEDS: methylPREDNISolone SOD SUCCI 125 MG/2 ML VIAL IV SCH ×4 (00:27→17:26)
[2018-08-24] MEDS: PIPERACILLIN-TAZOBACTAM 3.375 GM in DEXTROSE/WATER 1 50ML.BAG IVPB SCH ×3 (00:28→16:16)
[2018-08-24] MEDS: HEPARIN SOD,PORK IN 0.45% NACL 25,000 UNIT in 0.45% NACL 1 500ML.BAG IV SCH (02:25)
[2018-08-24] MEDS: HYDROcodone/APAP 5-325MG 1 EACH TAB PO PRN (04:07)
[2018-08-24 05:54] LABS: Basophils % (A) 0 %; Eosinophils % (A) 0 %; HCT 39.5 % (39.0-53.0); HGB 12.8 gm/dL (13.0-17.5); Lymphocytes # (A) 0.5 k/uL (1.0-4.8); Lymphocytes % (A) 3 %; MCHC 32.5 g/dL (31.0-37.0); MCV 104.7 fL (80.0-100.0); Macrocytosis Slight; Mean Platelet Volume 7.7; Monocytes # (A) 0.3 k/uL (0-1.0); Monocytes % (A) 2 %; Neutrophils # (A) 14.8 k/uL (1.3-7.7); Neutrophils % (A) 95 %; Platelet Count 300 k/uL (150-450); RBC 3.78 m/uL (4.30-5.90); RDW 13.3 % (11.5-15.5); WBC 15.7 k/uL (3.8-10.6)
[2018-08-24 06:07] LABS: Magnesium 1.9 mg/dL (1.6-2.3)
--- NOTE | 2018-08-24 07:21 | XR ---
EXAMINATION TYPE: XR chest 1V portable DATE OF EXAM: 08/24/2018 COMPARISON: 08/22/2018 HISTORY: Shortness of breath TECHNIQUE: Frontal and lateral views of the chest are obtained. FINDINGS: Scattered senescent parenchymal changes noted. Hyperinflation compatible with COPD. There is stable right perihilar infiltrate/mass. Heart size is stable. Mediastinal structures are stable and grossly unremarkable. No evidence for hilar prominence. Degenerative changes dorsal spine. IMPRESSION: 1. No evidence for acute pulmonary disease.There is stable right perihilar infiltrate/mass.
--- NOTE | 2018-08-24 08:08 | P.PN ---
Subjective Progress Note Date: 08/24/18 Principal diagnosis: Acute non-ST elevation myocardial infarction This is a pleasant 62-year-old gentleman with a past medical history significant for hypertension, dyslipidemia, and significant history of smoking, was admitted to the hospital with a chest discomfort and ruled in for acute coronary syndrome. The troponin came in to be elevated. The EKG did show ischemic ST and T wave abnormalities. Because of that and because of the ongoing chest discomfort the patient did undergo a heart catheterization yesterday which revealed critical disease involving the ostial left anterior descending artery. The echocardiogram revealed severely impaired LV function with EF of 20%. I did consult cardiothoracic surgeon. The patient also was seen by the pulmonary team and he did undergo pulmonary function test which came in to be significantly abnormal. The chest x-ray showed finding consistent with possible cavitation in the right upper lobe. During that, I would pursue with percutaneous coronary intervention on the LAD later on today. I will do the procedure with adjunctive use of impella. On follow-up with the patient today, August 242017, he is asymptomatic from a cardiac vascular standpoint overview. He underwent yesterday stenting of the LAD. The right and left groins are soft and nontender with very small hematoma on the right groin. He continues to be hemodynamically stable. He continues to be on dual antiplatelet therapy as well as a statin. The patient can be transferred out of the ICU. Objective - Vital Signs Vital signs: Vital Signs Temp 98.4 F 08/24/18 00:00 Pulse 85 08/24/18 07:01 Resp 16 08/24/18 07:01 BP 120/69 08/24/18 07:01 Pulse Ox 95 08/24/18 04:00 Intake & Output 08/23/18 08/24/18 08/24/18 18:59 06:59 18:59 Intake Total 760.614 600 75 Output Total 75 1350 Balance 685.614 -750 75 Weight 75.3 kg 77.1 kg Intake: IV 235 600 75 Sodium Chloride 0.9% 1, 600 75 000 ml @ 75 mls/hr IV . [id number] [facility] Rx#:[id number] Intake, IV Titration 525.614 0 Amount Heparin Sod,Pork in 0.45% 100.614 NaCl 25,000 unit In 0.45 % NaCl 1 500ml.bag @ 12 UNITS/KG/HR 17.96 mls/hr IV .Q24H [facility] Rx#: [id number] Piperacillin-Tazobactam 3 50 .375 gm In Dextrose/Water 1 50ml.bag @ 12.5 mls/hr IVPB Q8HR [facility] Rx#: [id number] Sodium Chloride 0.9% 1, 375 0 000 ml @ 75 mls/hr IV . [id number] [facility] Rx#:[id number] Output: Urine 75 1350 Other: Voiding Method Urinal Toilet Urinal # Voids 1 1 # Bowel Movements 1 1 - Respiratory Respiratory: bilateral: CTA - Cardiovascular Rhythm: regular Heart sounds: normal: S1, S2 - Labs CBC & Chem 7: 08/24/18 04:48 08/24/18 04:48 Labs: Abnormal Lab Results - Last 24 Hours (Table) 08/23/18 08/23/18 08/23/18 Range/Units 08:00 08:00 08:00 WBC (3.8-10.6) k/uL RBC 4.17 L (4.30-5.90) m/uL Hgb (13.0-17.5) gm/dL MCV 103.6 H (80.0-100.0) fL Neutrophils # (1.3-7.7) k/uL Lymphocytes # 0.7 L (1.0-4.8) k/uL Potassium 5.5 H (3.5-5.1) mmol/L Glucose 137 H (74-99) mg/dL POC Glucose (mg/dL) (75-99) mg/dL Iron 272 H (65-175) ug/dL Iron Saturation 101.87 H (15.00-50.00) Ferritin 882.8 H (22.0-322.0) ng/mL AST 75 H (17-59) U/L ALT 89 H (21-72) U/L Cholesterol 220 H (<200) mg/dL HDL Cholesterol 107 H (40-60) mg/dL 08/23/18 08/23/18 08/23/18 Range/Units 12:24 13:22 17:21 WBC (3.8-10.6) k/uL RBC (4.30-5.90) m/uL Hgb (13.0-17.5) gm/dL MCV (80.0-100.0) fL Neutrophils # (1.3-7.7) k/uL Lymphocytes # (1.0-4.8) k/uL Potassium (3.5-5.1) mmol/L Glucose (74-99) mg/dL POC Glucose (mg/dL) 166 H 149 H 171 H (75-99) mg/dL Iron (65-175) ug/dL Iron Saturation (15.00-50.00) Ferritin (22.0-322.0) ng/mL AST (17-59) U/L ALT (21-72) U/L Cholesterol (<200) mg/dL HDL Cholesterol (40-60) mg/dL 08/23/18 08/24/18 Range/Units 20:51 04:48 WBC 15.7 H (3.8-10.6) k/uL RBC 3.78 L (4.30-5.90) m/uL Hgb 12.8 L (13.0-17.5) gm/dL MCV 104.7 H (80.0-100.0) fL Neutrophils # 14.8 H (1.3-7.7) k/uL Lymphocytes # 0.5 L (1.0-4.8) k/uL Potassium (3.5-5.1) mmol/L Glucose (74-99) mg/dL POC Glucose (mg/dL) 141 H (75-99) mg/dL Iron (65-175) ug/dL Iron Saturation (15.00-50.00) Ferritin (22.0-322.0) ng/mL AST (17-59) U/L ALT (21-72) U/L Cholesterol (<200) mg/dL HDL Cholesterol (40-60) mg/dL Assessment and Plan Assessment: Assessment #1 acute non-ST patient myocardial infarction and status post PCI of the LAD #2 severe ischemic cardiomyopathy #3 significant history of smoking #4 chronic obstructive pulmonary disease Plan #1 continue the current medical regimen #2 continue dual antiplatelet therapy and statin #3 follow-up with the patient.
[2018-08-24] MEDS: INSULIN ASPART 100 UNIT/ML 1 ML 10 ML VIAL SQ SCH ×4 (08:29→22:12)
[2018-08-24] MEDS: PANTOPRAZOLE 40 MG TABLET PO SCH (08:29)
[2018-08-24 08:30] LABS: Glucose,Whole Blood 145 mg/dL (75-99)
[2018-08-24 08:48] LABS: Anion Gap 9 mmol/L; Blood Urea Nitrogen 19 mg/dL (9-20); Calcium 9.4 mg/dL (8.4-10.2); Carbon Dioxide 25 mmol/L (22-30); Chloride 104 mmol/L (98-107); Glucose 150 mg/dL (74-99); Potassium 4.6 mmol/L (3.5-5.1); Sodium 138 mmol/L (137-145)
[2018-08-24] MEDS: IPRATROPIUM-ALBUTEROL 3 ML NEB INHALATION PRN (09:12)
[2018-08-24] MEDS: BUDESONIDE 1 MG/2 ML NEBU INHALATION SCH ×2 (09:12→21:23)
[2018-08-24] MEDS: FORMOTEROL FUMARATE 20 MCG/2 ML NEBU INHALATION SCH ×2 (09:12→21:23)
[2018-08-24] MEDS: NICOTINE 14MG/24HR PATCH TRANSDERM SCH (09:45)
[2018-08-24] MEDS: METOPROLOL TARTRATE 25 MG TAB PO SCH ×2 (09:45→22:01)
[2018-08-24] MEDS: ASPIRIN 81 MG PO SCH (09:45)
[2018-08-24] MEDS: TICAGRELOR 90 MG TAB PO SCH ×2 (09:45→22:01)
[2018-08-24] MEDS: LISINOPRIL 2.5 MG TAB PO SCH (09:45)
[2018-08-24] MEDS: ATORVASTATIN 80 MG TAB PO SCH (09:45)
[2018-08-24 10:16] VITALS: BMI 26.6
[2018-08-24] MEDS: MULTIVITAMINS, THERA 1 EACH TAB PO SCH (12:26)
[2018-08-24] MEDS: THIAMINE 100 MG TAB PO SCH ×2 (12:26→17:25)
[2018-08-24 12:37] LABS: Glucose,Whole Blood 163 mg/dL (75-99)
--- NOTE | 2018-08-24 13:16 | P.PN ---
Subjective Progress Note Date: 08/24/18 Principal diagnosis: Acute non-ST segment elevation myocardial infarction. This is a pleasant 62-year-old gentleman who has a history of hypertension and a 48 year pack per day smoking history. He also has occasional alcohol use and recently drank a fifth and passed out. He presented here early this morning with complaints of chest pain. EKG showed STT wave changes noted in the anterior leads. His troponins were borderline positive at 0.124 and 0.180 just above non-Q-wave myocardial infarction. ProBNP level 1530. Urine drug screen was negative. Serum alcohol 32. Count 12.7. Hemoglobin 12.6. Creatinine 0.70. D-dimer 1.15. AST 142. ALT 123. A CT angiogram ruled out pulmonary embolism however there was evidence of emphysema and a cavitating infiltrate at the right paraspinal lower lobe. Mostly inflammatory however necrotic tumor could not fully be excluded. Echocardiogram revealed severely impaired left ventricular systolic function with ejection fraction 20-25%. There is severe pulmonary hypertension with a PA pressure of 56 mmHg. He had been seen and evaluated by cardiology in a cardiac catheterization was performed today that revealed a tight ostial LAD lesion right by the takeoff of the left main in the range of 90-95%. We are consulted regarding the abnormal findings on the CT angiogram. He is seen today in consultation on the selective care unit. He is currently awake and alert in no acute distress. He does admit to drinking and passing out most recently as of 08/19/2018. There may be evidence of aspiration pneumonia with inflammatory changes versus malignancy. He currently denies any chest pain, palpitations lightheadedness or dizziness. No shortness of breath, cough or congestion. No fever chills or night sweats. He is maintaining O2 saturations in the 90s on room air. He's afebrile. Hemodynamically stable. He is currently on a heparin drip. Cardiothoracic has been consulted. The patient is seen again today 08/23/2018 in follow-up in the intensive care unit. He did end up going down for successful placement of Interlock 2.5, atherectomy of the ostial left anterior descending artery using the orbital atherectomy device from [facility] and successful stenting of the ostial/proximal LAD utilizing a 4.0 x 15 mm science ROXANA with excellent results by Dr. Benito today. He is currently resting comfortably in bed. He is awake and alert in no acute distress. He denies any worsening shortness of breath. No chest pain or palpitations. He is currently maintaining good O2 saturations in the mid 90s on room air. He's been afebrile. Hemodynamically stable. White count 5.6. Hemoglobin 14.0. Creatinine 0.89. The patient is seen again today 08/24/2018 in follow-up in the intensive care unit. He is awake and alert in no acute distress. He is currently sitting up in bed. He denies any chest pain, palpitations lightheadedness or dizziness. He denies any worsening shortness of breath, cough or congestion. He is maintaining good O2 saturations in the 90s on room air. Chest x-ray shows no acute cardiopulmonary process. There is a stable right perihilar infiltrate/ mass. He's been afebrile. Hemodynamically stable. White count 15.7. Hemoglobin 12.8. Creatinine 1.02. He remains on bronchodilators, IV Solu- Medrol, Zosyn. Objective - Vital Signs Vital signs: Vital Signs Temp 98.1 F 08/24/18 12:00 Pulse 98 08/24/18 13:00 Resp 18 08/24/18 13:00 BP 138/90 08/24/18 13:00 Pulse Ox 95 08/24/18 13:00 Intake & Output 08/23/18 08/24/18 08/24/18 18:59 06:59 18:59 Intake Total 760.614 600 525 Output Total 75 1350 300 Balance 685.614 -750 225 Weight 75.3 kg 77.1 kg 77.1 kg Intake: IV 235 600 525 Sodium Chloride 0.9% 1, 600 525 000 ml @ 75 mls/hr IV . [id number] [facility] Rx#:[id number] Intake, IV Titration 525.614 0 Amount Heparin Sod,Pork in 0.45% 100.614 NaCl 25,000 unit In 0.45 % NaCl 1 500ml.bag @ 12 UNITS/KG/HR 17.96 mls/hr IV .Q24H [facility] Rx#: [id number] Piperacillin-Tazobactam 3 50 .375 gm In Dextrose/Water 1 50ml.bag @ 12.5 mls/hr IVPB Q8HR [facility] Rx#: [id number] Sodium Chloride 0.9% 1, 375 0 000 ml @ 75 mls/hr IV . [id number] [facility] Rx#:[id number] Output: Urine 75 1350 300 Other: Voiding Method Urinal Toilet Toilet Urinal Urinal # Voids 1 1 # Bowel Movements 1 1 - Exam GENERAL EXAM: Alert, on room air, comfortable in no apparent distress. HEAD: Normocephalic. EYES: Normal reaction of pupils, equal size. NOSE: Clear with pink turbinates. THROAT: No erythema or exudates. NECK: No masses, no JVD. CHEST: No chest wall deformity. LUNGS: Equal air entry with end expiratory wheeze, diminished.. CVS: S1 and S2 normal with an audible murmur, regular rhythm. ABDOMEN: No hepatosplenomegaly, normal bowel sounds, no guarding or rigidity. SPINE: No scoliosis or deformity SKIN: No rashes CENTRAL NERVOUS SYSTEM: No focal deficits, tone is normal in all 4 extremities. EXTREMITIES: Bilateral groin strain intact.. There is no peripheral edema. No clubbing, no cyanosis. Peripheral pulses are intact. - Labs CBC & Chem 7: 08/24/18 04:48 08/24/18 04:48 Labs: Abnormal Lab Results - Last 24 Hours (Table) 08/23/18 08/23/18 08/23/18 Range/Units 08:00 13:22 17:21 WBC (3.8-10.6) k/uL RBC (4.30-5.90) m/uL Hgb (13.0-17.5) gm/dL MCV (80.0-100.0) fL Neutrophils # (1.3-7.7) k/uL Lymphocytes # (1.0-4.8) k/uL Glucose (74-99) mg/dL POC Glucose (mg/dL) 149 H 171 H (75-99) mg/dL Iron 272 H (65-175) ug/dL Iron Saturation 101.87 H (15.00-50.00) Ferritin 882.8 H (22.0-322.0) ng/mL 08/23/18 08/24/18 08/24/18 Range/Units 20:51 04:48 04:48 WBC 15.7 H (3.8-10.6) k/uL RBC 3.78 L (4.30-5.90) m/uL Hgb 12.8 L (13.0-17.5) gm/dL MCV 104.7 H (80.0-100.0) fL Neutrophils # 14.8 H (1.3-7.7) k/uL Lymphocytes # 0.5 L (1.0-4.8) k/uL Glucose 150 H (74-99) mg/dL POC Glucose (mg/dL) 141 H (75-99) mg/dL Iron (65-175) ug/dL Iron Saturation (15.00-50.00) Ferritin (22.0-322.0) ng/mL 08/24/18 08/24/18 Range/Units 07:21 12:19 WBC (3.8-10.6) k/uL RBC (4.30-5.90) m/uL Hgb (13.0-17.5) gm/dL MCV (80.0-100.0) fL Neutrophils # (1.3-7.7) k/uL Lymphocytes # (1.0-4.8) k/uL Glucose (74-99) mg/dL POC Glucose (mg/dL) 145 H 163 H (75-99) mg/dL Iron (65-175) ug/dL Iron Saturation (15.00-50.00) Ferritin (22.0-322.0) ng/mL Assessment and Plan Assessment: Impression: #1 Non-ST segment elevation myocardial infarction, status post cardiac catheterization revealing a 90-95% tight ostial lesion in the LAD near the takeoff of the left main. On 08/23/2018 he underwent successful placement of an Interlock 2.5, atherectomy of the ostial left anterior descending artery utilizing the orbital atherectomy device from [employer] and successful stenting of the ostial/proximal LAD utilizing a 4.0 x 15 mm Xience ROXANA with excellent angiographic results. #2 Severe ischemic cardiomyopathy with ejection fraction less than 20%. #3 Cavitating infiltrate of the right paraspinal right lower lobe. Suspect inflammatory disease however cannot rule out necrotic tumor with malignancy. #4 Chronic and ongoing tobacco dependence of greater than 40 years at 1 pack per day with suspected chronic obstructive pulmonary disease. #5 History of alcohol abuse with recent episode of passing out and possible aspiration pneumonia. #6 Elevated LFTs suspect secondary to above. #7 History of hypertension. #8 Poor baseline functional performance. Plan: The patient was seen and evaluated by Dr. Arias. Chest x-ray and labs reviewed. He is stable from the pulmonary and critical care standpoint. We will continue his pulmonary medications for suspected COPD with ongoing tobacco dependence. He is again educated regarding the importance of complete smoking cessation. A NicoDerm patch applied. We'll continue DuoNeb inhalations, Pulmicort and Perforomist inhalations. Continue IV Solu-Medrol. We'll continue Zosyn for suspected aspiration pneumonia versus possible malignancy. Transfer her out the intensive care unit today. We will continue to follow and make further recommendations based on his clinical status. I, the cosigning physician, performed a history & physical examination of the patient. Lungs sounds with few scattered rhonchi, end expiratory wheeze, diminished. Maintaining good O2 saturations in the 90s on room air. I discussed the assessment and plan of care with my nurse practitioner, Meron Cummins. I attest to the above note as dictated by her.
--- NOTE | 2018-08-24 14:38 | P.PN ---
Subjective Progress Note Date: 08/24/18 Principal diagnosis: NSTEMI Patient was seen and examined. No acute events overnight. Patient denies any chest pain. Patient looking for to going home. He has no complaints this morning. Objective - Vital Signs Vital signs: Vital Signs Temp 98.1 F 08/24/18 12:00 Pulse 91 08/24/18 14:00 Resp 15 08/24/18 14:00 BP 124/70 08/24/18 14:00 Pulse Ox 96 08/24/18 14:00 Intake & Output 08/23/18 08/24/18 08/24/18 18:59 06:59 18:59 Intake Total 760.614 600 600 Output Total 75 1350 300 Balance 685.614 -750 300 Weight 75.3 kg 77.1 kg 77.1 kg Intake: IV 235 600 600 Sodium Chloride 0.9% 1, 600 600 000 ml @ 75 mls/hr IV . [id number] [facility] Rx#:[id number] Intake, IV Titration 525.614 0 Amount Heparin Sod,Pork in 0.45% 100.614 NaCl 25,000 unit In 0.45 % NaCl 1 500ml.bag @ 12 UNITS/KG/HR 17.96 mls/hr IV .Q24H [facility] Rx#: [id number] Piperacillin-Tazobactam 3 50 .375 gm In Dextrose/Water 1 50ml.bag @ 12.5 mls/hr IVPB Q8HR [facility] Rx#: [id number] Sodium Chloride 0.9% 1, 375 0 000 ml @ 75 mls/hr IV . [id number] [facility] Rx#:[id number] Output: Urine 75 1350 300 Other: Voiding Method Urinal Toilet Toilet Urinal Urinal # Voids 1 1 # Bowel Movements 1 1 - Exam General: [non toxic], [no distress], [appears at stated age] Derm: [warm], [dry] Head: [atraumatic], [normocephalic], [symmetric] Eyes: [EOMI], [no lid lag], [anicteric sclera] Mouth: [no lip lesion], [mucus membranes moist] Cardiovascular: [S1S2 reg], [no murmur], [positive DP pulse bilateral] Lungs: [Mild expiratory wheezing bilateral], [no rhonchi, no rales] , [no accessory muscle use] Abdominal: [soft], [ nontender to palpation], [no guarding], [no appreciable organomegaly] Ext: [no gross muscle atrophy], [no edema], [no contractures], [R groin no hematoma] Neuro: [no focal neuro deficits] Psych: [Alert], [oriented], [appropriate affect] - Labs CBC & Chem 7: 08/24/18 04:48 08/24/18 04:48 Labs: Abnormal Lab Results - Last 24 Hours (Table) 08/23/18 08/23/18 08/23/18 Range/Units 08:00 17:21 20:51 WBC (3.8-10.6) k/uL RBC (4.30-5.90) m/uL Hgb (13.0-17.5) gm/dL MCV (80.0-100.0) fL Neutrophils # (1.3-7.7) k/uL Lymphocytes # (1.0-4.8) k/uL Glucose (74-99) mg/dL POC Glucose (mg/dL) 171 H 141 H (75-99) mg/dL Iron 272 H (65-175) ug/dL Iron Saturation 101.87 H (15.00-50.00) Ferritin 882.8 H (22.0-322.0) ng/mL 08/24/18 08/24/18 08/24/18 Range/Units 04:48 04:48 07:21 WBC 15.7 H (3.8-10.6) k/uL RBC 3.78 L (4.30-5.90) m/uL Hgb 12.8 L (13.0-17.5) gm/dL MCV 104.7 H (80.0-100.0) fL Neutrophils # 14.8 H (1.3-7.7) k/uL Lymphocytes # 0.5 L (1.0-4.8) k/uL Glucose 150 H (74-99) mg/dL POC Glucose (mg/dL) 145 H (75-99) mg/dL Iron (65-175) ug/dL Iron Saturation (15.00-50.00) Ferritin (22.0-322.0) ng/mL 10/26/18 Range/Units 12:19 WBC (3.8-10.6) k/uL RBC (4.30-5.90) m/uL Hgb (13.0-17.5) gm/dL MCV (80.0-100.0) fL Neutrophils # (1.3-7.7) k/uL Lymphocytes # (1.0-4.8) k/uL Glucose (74-99) mg/dL POC Glucose (mg/dL) 163 H (75-99) mg/dL Iron (65-175) ug/dL Iron Saturation (15.00-50.00) Ferritin (22.0-322.0) ng/mL Assessment and Plan Assessment: 1. NSTEMI: s/p PCI and stent placement 08/23. Troponin 0.124, 1.180, 1.520 with EKG showing Q waves in lead 3. D-Dimer 1.15, CTA chest shows no PE. CXR shows COPD and pulmonary fibrosis. Echocardiogram shows an EF of 20-25%, LVH. Cardiac catheterization shows 50% occlusion of the OM branch, 90-95% occlusion of the ostial LAD. Cardiothoracic surgery consulted - patient is high risk for surgery and will need pulmonary and medical maximization prior to surgery. Decision for cardiology to perform high risk PCI with Impella. Continue ASA 325 mg PO QD, Lipitor 80 mg PO QHS. Start Brilinta 90 mg PO BID. Nitrostat PRN for chest pain. Continue Metoprolol 25 mg PO BID. Telemetry monitoring. FU Cardiology, Lipid panel 2. Lung mass: CTA chest shows Emphysema and a cavitating infiltrate in the RLL ( necrotic tumor cannot be ruled out). Piperacillin/Tazobactam 3.375g IV TID for concerns for aspiration PNA. Will likely need repeat imaging in the future. FU Pulmonology 3. COPD: Seen on CTA Chest and CXR with a long smoking history. Patient started on DuoNeb QID PRN, Budesonide 1 puff BID, Formoterol 1 puff BID, SoluMedrol 60 mg IV Q6H for pulmonary optimization. O2 per NC to maintain O2 sat > 92%. FU Pulmonology 4. EtOH abuse: Last drink of Monday. Denies WD symptoms. CIWA protocol. Ativan IV PRN for CIWA > 8. Continue MVI 1 tab PO QD, Thiamine 100 mg PO BID. 5. Leukocytosis: WBC 12.7 to 15.7. Mild. Patient is afebrile with no signs of infection. Likely reactive. Daily CBC. 6. Anemia: Hg 12.8 Hct 38.6 MCV 104.7. Macrocytosis related to EtOH abuse. Transfuse if Hg < 7.0. B12 and folate are within normal limits. Iron studies show elevated ferritin and iron. 7. Transaminiitis: AST 142 to 75, ALT 123 to 89. T. Bili and ALKP is within normal limits, no obstruction. Likely related to EtOH abuse. Daily CMP. 8. Nicotine dependance: Start Habitrol 14 mg TRANSDERM QD. 9. DVT/GI Prophylaxis: Heparin drip. Start Protonix 40 mg PO QD. Resolved issues: Decreased bicarbonate, Tachycardia. Patient stable after PCI. Likely discharge tomorrow as per cardiology. Transfer out of ICU today.
[2018-08-24] MEDS: BISACODYL 5 MG TABLET.DR PO PRN (16:16)
[2018-08-24 17:39] LABS: Glucose,Whole Blood 156 mg/dL (75-99)
[2018-08-24] MEDS: LORazepam 2 MG/ML INJ IV PRN (18:45)
[2018-08-24] MEDS: ONDANSETRON 4 MG/2 ML VIAL IVP PRN (18:49)
[2018-08-24] MEDS ORDERED: MELATONIN 3 MG TABLET PO SCH (21:00)
[2018-08-24 22:04] LABS: Glucose,Whole Blood 184 mg/dL (75-99)
[2018-08-25] MEDS: methylPREDNISolone SOD SUCCI 125 MG/2 ML VIAL IV SCH ×2 (00:35→05:32)
[2018-08-25] MEDS: PIPERACILLIN-TAZOBACTAM 3.375 GM in DEXTROSE/WATER 1 50ML.BAG IVPB SCH ×2 (00:35→08:37)
[2018-08-25 05:43] LABS: Basophils % (A) 0 %; Eosinophils % (A) 0 %; HCT 42.1 % (39.0-53.0); HGB 13.5 gm/dL (13.0-17.5); Lymphocytes # (A) 0.5 k/uL (1.0-4.8); Lymphocytes % (A) 3 %; MCH 33.5 pg (25.0-35.0); MCV 104.6 fL (80.0-100.0); Macrocytosis Slight; Mean Platelet Volume 7.5; Monocytes # (A) 0.3 k/uL (0-1.0); Monocytes % (A) 2 %; Neutrophils # (A) 16.3 k/uL (1.3-7.7); Neutrophils % (A) 95 %; Platelet Count 308 k/uL (150-450); RBC 4.02 m/uL (4.30-5.90); RDW 13.5 % (11.5-15.5); WBC 17.2 k/uL (3.8-10.6)
[2018-08-25 05:49] LABS: Anion Gap 5 mmol/L; Blood Urea Nitrogen 21 mg/dL (9-20); Calcium 9.4 mg/dL (8.4-10.2); Carbon Dioxide 26 mmol/L (22-30); Chloride 104 mmol/L (98-107); Glucose 148 mg/dL (74-99); Potassium 4.9 mmol/L (3.5-5.1); Sodium 135 mmol/L (137-145)
[2018-08-25 08:36] LABS: Glucose,Whole Blood 131 mg/dL (75-99)
[2018-08-25] MEDS: ATORVASTATIN 80 MG TAB PO SCH (08:36)
[2018-08-25] MEDS: LISINOPRIL 2.5 MG TAB PO SCH (08:36)
[2018-08-25] MEDS: PANTOPRAZOLE 40 MG TABLET PO SCH (08:36)
[2018-08-25] MEDS: HYDROcodone/APAP 5-325MG 1 EACH TAB PO PRN (08:37)
[2018-08-25] MEDS: METOPROLOL TARTRATE 25 MG TAB PO SCH (08:37)
[2018-08-25] MEDS: BISACODYL 5 MG TABLET.DR PO PRN (08:37)
[2018-08-25] MEDS: TICAGRELOR 90 MG TAB PO SCH (08:37)
[2018-08-25] MEDS: ONDANSETRON 4 MG/2 ML VIAL IVP PRN (08:37)
[2018-08-25] MEDS: ASPIRIN 81 MG PO SCH (08:37)
[2018-08-25] MEDS: NICOTINE 14MG/24HR PATCH TRANSDERM SCH (08:37)
[2018-08-25] MEDS: INSULIN ASPART 100 UNIT/ML 1 ML 10 ML VIAL SQ SCH (08:40)
[2018-08-25] MEDS: BUDESONIDE 1 MG/2 ML NEBU INHALATION SCH (08:48)
[2018-08-25] MEDS: IPRATROPIUM-ALBUTEROL 3 ML NEB INHALATION PRN ×2 (08:48→12:53)
[2018-08-25] MEDS: FORMOTEROL FUMARATE 20 MCG/2 ML NEBU INHALATION SCH (08:48)
[2018-08-25 10:18] VITALS: BP 107/92
[2018-08-25] MEDS ORDERED: MAGNESIUM HYDROXIDE 2,400 MG/10 ML CUP PO PRN (10:24)
--- NOTE | 2018-08-25 11:02 | P.PN ---
Subjective Progress Note Date: 08/25/18 Principal diagnosis: Chest pain Patient was seen and examined. No acute events overnight. Patient has no complaints this morning. He denies any chest pain, shortness of breath, palpitations. No nausea or vomiting. Patient is looking for to going home. Patient states that he has a place to stay. Objective - Vital Signs Vital signs: Vital Signs Temp 97.7 F 08/25/18 08:00 Pulse 92 08/25/18 10:00 Resp 19 08/25/18 10:00 BP 107/92 08/25/18 10:00 Pulse Ox 95 08/25/18 10:00 Intake & Output 08/24/18 08/25/18 08/25/18 18:59 06:59 18:59 Intake Total 690 20 Output Total 1325 425 Balance -635 -405 Weight 77.1 kg 77.9 kg Intake: IV 690 20 KVO 15 20 Sodium Chloride 0.9% 1, 675 000 ml @ 75 mls/hr IV . [id number] [facility] Rx#:[id number] Output: Urine 1325 425 Other: Voiding Method Toilet Toilet Urinal Urinal # Voids 1 1 - Exam General: [non toxic], [no distress], [appears at stated age] Derm: [warm], [dry] Head: [atraumatic], [normocephalic], [symmetric] Eyes: [EOMI], [no lid lag], [anicteric sclera] Mouth: [no lip lesion], [mucus membranes moist] Cardiovascular: [S1S2 reg], [no murmur], [positive DP pulse bilateral] Lungs: [Clear to auscultation bilateral], [no rhonchi, no rales] , [no accessory muscle use] Abdominal: [soft], [ nontender to palpation], [no guarding], [no appreciable organomegaly] Ext: [no gross muscle atrophy], [no edema], [no contractures], [R groin no hematoma] Neuro: [no focal neuro deficits] Psych: [Alert], [oriented], [appropriate affect] - Labs CBC & Chem 7: 08/25/18 05:17 08/25/18 05:17 Labs: Abnormal Lab Results - Last 24 Hours (Table) 08/24/18 08/24/18 08/24/18 Range/Units 12:19 17:20 22:00 WBC (3.8-10.6) k/uL RBC (4.30-5.90) m/uL MCV (80.0-100.0) fL Neutrophils # (1.3-7.7) k/uL Lymphocytes # (1.0-4.8) k/uL Sodium (137-145) mmol/L BUN (9-20) mg/dL Glucose (74-99) mg/dL POC Glucose (mg/dL) 163 H 156 H 184 H (75-99) mg/dL 08/25/18 08/25/18 08/25/18 Range/Units 05:17 05:17 08:34 WBC 17.2 H (3.8-10.6) k/uL RBC 4.02 L (4.30-5.90) m/uL MCV 104.6 H (80.0-100.0) fL Neutrophils # 16.3 H (1.3-7.7) k/uL Lymphocytes # 0.5 L (1.0-4.8) k/uL Sodium 135 L (137-145) mmol/L BUN 21 H (9-20) mg/dL Glucose 148 H (74-99) mg/dL POC Glucose (mg/dL) 131 H (75-99) mg/dL Assessment and Plan Assessment: 1. NSTEMI: s/p PCI and stent placement 08/23. Troponin 0.124, 1.180, 1.520 with EKG showing Q waves in lead 3. D-Dimer 1.15, CTA chest shows no PE. CXR shows COPD and pulmonary fibrosis. Echocardiogram shows an EF of 20-25%, LVH. Cardiac catheterization shows 50% occlusion of the OM branch, 90-95% occlusion of the ostial LAD. Cardiothoracic surgery consulted - patient is high risk for surgery and will need pulmonary and medical maximization prior to surgery. Decision for cardiology to perform high risk PCI with Impella. Continue ASA 325 mg PO QD, Lipitor 80 mg PO QHS. Start Brilinta 90 mg PO BID. Nitrostat PRN for chest pain. Continue Metoprolol 25 mg PO BID. Telemetry monitoring. FU Cardiology, Lipid panel 2. Lung mass: CTA chest shows Emphysema and a cavitating infiltrate in the RLL ( necrotic tumor cannot be ruled out). Piperacillin/Tazobactam 3.375g IV TID for concerns for aspiration PNA. Will likely need repeat imaging in the future. FU Pulmonology 3. COPD: Seen on CTA Chest and CXR with a long smoking history. Patient started on DuoNeb QID PRN, Budesonide 1 puff BID, Formoterol 1 puff BID, SoluMedrol 60 mg IV Q6H for pulmonary optimization. O2 per NC to maintain O2 sat > 92%. FU Pulmonology 4. EtOH abuse: Last drink of Monday. Denies WD symptoms. CIWA protocol. Ativan IV PRN for CIWA > 8. Continue MVI 1 tab PO QD, Thiamine 100 mg PO BID. 5. Leukocytosis: WBC 12.7 to 15.7 to 17.2. Mild. Patient is afebrile with no signs of infection. Likely reactive. Daily CBC. 6. Transaminiitis: AST 142 to 75, ALT 123 to 89. T. Bili and ALKP is within normal limits, no obstruction. Likely related to EtOH abuse. Daily CMP. 7. Nicotine dependance: Start Habitrol 14 mg TRANSDERM QD. 8. DVT/GI Prophylaxis: Heparin drip. Start Protonix 40 mg PO QD. Resolved issues: Decreased bicarbonate, Tachycardia, Anemia Patient stable after PCI. Patient to be discharged today, states he has a place to live. Case management attempting to get approval for [facility].
[2018-08-25 12:04] VITALS: RESP 10; TEMP 97.5
--- NOTE | 2018-08-25 12:11 | PN ---
PROGRESS NOTE Mr. Bai is a 62-year-old male who presented with an acute myocardial infarction and was found to have severe cardiomyopathy with an ostial LAD lesion. He underwent stenting of the LAD with an Impella placement by Dr. Benito. He is complaining of abdominal discomfort. He denies any chest pain. His breathing has been stable. He denies any dizziness or palpitation. He continues to be on aspirin once a day, Lipitor 80 mg daily, lisinopril 2.5 mg daily, metoprolol 25 mg twice a day, Brilinta 90 mg twice a day. PHYSICAL EXAMINATION: Blood pressure 107/90 with a heart rate in the 90s. LUNGS: Clear. HEART: Regular rate and rhythm. S1, S2. No S3. No rub. ABDOMEN: Soft, nontender. EXTREMITIES: No edema. LAB DATA: BUN and creatinine of 21 and 0.99, potassium 4.9, hemoglobin 13.5, white blood cell count 17.2. IMPRESSION: 1. Status post stenting of the proximal left anterior descending coronary artery with severe cardiomyopathy and myocardial infarction. 2. Constipation with episode of nausea. RECOMMENDATIONS: From the cardiac standpoint, we will continue present therapy, increase his level of activity. He will receive the stool softener. Patient's EKG will be followed. He has a cavitating infiltrate of the right paraspinal right lower lobe and that has been followed by Dr. Arias. The possibility of pneumonia or aspiration pneumonia related to his alcoholism cannot be excluded. MMODL / IJN: [id number] /
[2018-08-25 13:08] VITALS: PULSE 82
[2018-08-25] MEDS: MULTIVITAMINS, THERA 1 EACH TAB PO SCH (13:29)
[2018-08-25] MEDS: THIAMINE 100 MG TAB PO SCH (13:29)
--- NOTE | 2018-08-25 15:02 | P.PN ---
Subjective Progress Note Date: 08/25/18 This is a pleasant 62-year-old gentleman who has a history of hypertension and a 48 year pack per day smoking history. He also has occasional alcohol use and recently drank a fifth and passed out. He presented here early this morning with complaints of chest pain. EKG showed STT wave changes noted in the anterior leads. His troponins were borderline positive at 0.124 and 0.180 just above non-Q-wave myocardial infarction. ProBNP level 1530. Urine drug screen was negative. Serum alcohol 32. Count 12.7. Hemoglobin 12.6. Creatinine 0.70. D-dimer 1.15. AST 142. ALT 123. A CT angiogram ruled out pulmonary embolism however there was evidence of emphysema and a cavitating infiltrate at the right paraspinal lower lobe. Mostly inflammatory however necrotic tumor could not fully be excluded. Echocardiogram revealed severely impaired left ventricular systolic function with ejection fraction 20-25%. There is severe pulmonary hypertension with a PA pressure of 56 mmHg. He had been seen and evaluated by cardiology in a cardiac catheterization was performed today that revealed a tight ostial LAD lesion right by the takeoff of the left main in the range of 90-95%. We are consulted regarding the abnormal findings on the CT angiogram. He is seen today in consultation on the selective care unit. He is currently awake and alert in no acute distress. He does admit to drinking and passing out most recently as of 08/19/2018. There may be evidence of aspiration pneumonia with inflammatory changes versus malignancy. He currently denies any chest pain, palpitations lightheadedness or dizziness. No shortness of breath, cough or congestion. No fever chills or night sweats. He is maintaining O2 saturations in the 90s on room air. He's afebrile. Hemodynamically stable. He is currently on a heparin drip. Cardiothoracic has been consulted. The patient is seen again today 08/23/2018 in follow-up in the intensive care unit. He did end up going down for successful placement of Interlock 2.5, atherectomy of the ostial left anterior descending artery using the orbital atherectomy device from [facility] and successful stenting of the ostial/proximal LAD utilizing a 4.0 x 15 mm science ROXANA with excellent results by Dr. Benito today. He is currently resting comfortably in bed. He is awake and alert in no acute distress. He denies any worsening shortness of breath. No chest pain or palpitations. He is currently maintaining good O2 saturations in the mid 90s on room air. He's been afebrile. Hemodynamically stable. White count 5.6. Hemoglobin 14.0. Creatinine 0.89. The patient is seen again today 08/24/2018 in follow-up in the intensive care unit. He is awake and alert in no acute distress. He is currently sitting up in bed. He denies any chest pain, palpitations lightheadedness or dizziness. He denies any worsening shortness of breath, cough or congestion. He is maintaining good O2 saturations in the 90s on room air. Chest x-ray shows no acute cardiopulmonary process. There is a stable right perihilar infiltrate/ mass. He's been afebrile. Hemodynamically stable. White count 15.7. Hemoglobin 12.8. Creatinine 1.02. He remains on bronchodilators, IV Solu- Medrol, Zosyn. On 08/25/2018, the patient is calm and comfortable. No respiratory distress. No chest pain. No fever chills or night sweats. No headaches. Hemodynamically stable. Resting comfortably in bed and there has been no other significant events overnight. The patient is still on bronchodilators. He was on IV Solu-Medrol which will be tapered to prednisone burst taper. He attempted to smoke cigarettes in the hospital which we were able to stop. We confiscated his cigarettes. The patient will be also taken off the Zosyn and discharged home on a course of Augmentin. Objective - Vital Signs Vital signs: Vital Signs Temp 97.5 F L 08/25/18 12:00 Pulse 82 08/25/18 13:06 Resp 10 L 08/25/18 12:00 BP 107/92 08/25/18 12:00 Pulse Ox 95 08/25/18 12:00 Intake & Output 08/24/18 08/25/18 08/25/18 18:59 06:59 18:59 Intake Total 690 20 Output Total 1325 425 Balance -699 -338 Weight 77.1 kg 77.9 kg Intake: IV 690 20 KVO 15 20 Sodium Chloride 0.9% 1, 675 000 ml @ 75 mls/hr IV . [id number] [facility] Rx#:[id number] Output: Urine 1325 425 Other: Voiding Method Toilet Toilet Urinal Urinal # Voids 1 1 - Exam GENERAL EXAM: Alert, on room air, comfortable in no apparent distress. HEAD: Normocephalic. EYES: Normal reaction of pupils, equal size. NOSE: Clear with pink turbinates. THROAT: No erythema or exudates. NECK: No masses, no JVD. CHEST: No chest wall deformity. LUNGS: Equal air entry with end expiratory wheeze, diminished.. CVS: S1 and S2 normal with an audible murmur, regular rhythm. ABDOMEN: No hepatosplenomegaly, normal bowel sounds, no guarding or rigidity. SPINE: No scoliosis or deformity SKIN: No rashes CENTRAL NERVOUS SYSTEM: No focal deficits, tone is normal in all 4 extremities. EXTREMITIES: Bilateral groin strain intact.. There is no peripheral edema. No clubbing, no cyanosis. Peripheral pulses are intact. - Labs CBC & Chem 7: 08/25/18 05:17 08/25/18 05:17 Labs: Abnormal Lab Results - Last 24 Hours (Table) 08/24/18 08/24/18 08/25/18 Range/Units 17:20 22:00 05:17 WBC 17.2 H (3.8-10.6) k/uL RBC 4.02 L (4.30-5.90) m/uL MCV 104.6 H (80.0-100.0) fL Neutrophils # 16.3 H (1.3-7.7) k/uL Lymphocytes # 0.5 L (1.0-4.8) k/uL Sodium (137-145) mmol/L BUN (9-20) mg/dL Glucose (74-99) mg/dL POC Glucose (mg/dL) 156 H 184 H (75-99) mg/dL 08/25/18 08/25/18 Range/Units 05:17 08:34 WBC (3.8-10.6) k/uL RBC (4.30-5.90) m/uL MCV (80.0-100.0) fL Neutrophils # (1.3-7.7) k/uL Lymphocytes # (1.0-4.8) k/uL Sodium 135 L (137-145) mmol/L BUN 21 H (9-20) mg/dL Glucose 148 H (74-99) mg/dL POC Glucose (mg/dL) 131 H (75-99) mg/dL Assessment and Plan Plan: #1 Non-ST segment elevation myocardial infarction, status post cardiac catheterization revealing a 90-95% tight ostial lesion in the LAD near the takeoff of the left main. On 08/23/2018 he underwent successful placement of an Interlock 2.5, atherectomy of the ostial left anterior descending artery utilizing the orbital atherectomy device from [facility] and successful stenting of the ostial/proximal LAD utilizing a 4.0 x 15 mm Xience ROXANA with excellent angiographic results. #2 Severe ischemic cardiomyopathy with ejection fraction less than 20%. #3 Cavitating infiltrate of the right paraspinal right lower lobe. Suspect inflammatory disease however cannot rule out necrotic tumor with malignancy. #4 Chronic and ongoing tobacco dependence of greater than 40 years at 1 pack per day with suspected chronic obstructive pulmonary disease. #5 History of alcohol abuse with recent episode of passing out and possible aspiration pneumonia. #6 Elevated LFTs suspect secondary to above. #7 History of hypertension. #8 Poor baseline functional performance. Plan Extensive smoking cessation counseling was done. The patient can be discharged home today on oral Augmentin. IV Solu Medrol be also discontinued and the patient will be discharged home on a prednisone burst taper. We'll apply nicotine patch. Cardiac medication per cardiology. Outpatient follow-up regarding the lesion that was described earlier which is probably inflammatory dose than ligament. The rate, a follow-up CAT scan will be in outpatient basis. PFT on outpatient basis. Ventolin rescue inhaler mastoid basis. We'll follow.
== END 2018-08-25 16:51 | disposition home or self-care (01) | DRG 247 ==
LOC: EC 00:44 → 3SCARD 02:09 → 2SICU 08-23 11:57
PROVIDERS: ADMIT Internal Medicine; ATTEND Internal Medicine
PROC: X2C0361 Extirpation of Matter from Coronary Artery, One Artery using Orbital Atherectomy Technology, Percutaneous Approach, New Technology Group 1 (ICD-10-PCS; 2018-08-22)
PROC: 027034Z Dilation of Coronary Artery, One Artery with Drug-eluting Intraluminal Device, Percutaneous Approach (ICD-10-PCS; 2018-08-22)
PROC: B2151ZZ Fluoroscopy of Left Heart using Low Osmolar Contrast (ICD-10-PCS; principal; 2018-08-22 12:00)
PROC: 4A023N7 Measurement of Cardiac Sampling and Pressure, Left Heart, Percutaneous Approach (ICD-10-PCS; principal; 2018-08-22 12:00)
PROC: B2111ZZ Fluoroscopy of Multiple Coronary Arteries using Low Osmolar Contrast (ICD-10-PCS; principal; 2018-08-22 12:00)
DX: I21.4 Non-ST elevation (NSTEMI) myocardial infarction (principal); E87.2 Acidosis; C34.31 Malignant neoplasm of lower lobe, right bronchus or lung; D50.9 Iron deficiency anemia, unspecified; D72.829 Elevated white blood cell count, unspecified; D75.89 Other specified diseases of blood and blood-forming organs; E78.5 Hyperlipidemia, unspecified; F10.10 Alcohol abuse, uncomplicated; F17.210 Nicotine dependence, cigarettes, uncomplicated; I08.3 Combined rheumatic disorders of mitral, aortic and tricuspid valves; I10 Essential (primary) hypertension; I25.10 Atherosclerotic heart disease of native coronary artery without angina pectoris; I25.5 Ischemic cardiomyopathy; I27.20 Pulmonary hypertension, unspecified; J43.9 Emphysema, unspecified; J84.10 Pulmonary fibrosis, unspecified; K59.00 Constipation, unspecified; K70.10 Alcoholic hepatitis without ascites; R79.1 Abnormal coagulation profile; Z79.51 Long term (current) use of inhaled steroids; Z79.899 Other long term (current) drug therapy; Z82.49 Family history of ischemic heart disease and other diseases of the circulatory system; Z83.3 Family history of diabetes mellitus; Z95.5 Presence of coronary angioplasty implant and graft; S30.1XXA Contusion of abdominal wall, initial encounter
CPT/HCPCS: 36415; 71045; 71046; 71275; 80048; 80053; 80061; 80306; 80320; 81003; 82550; 82553; 82565; 82607; 82728; 82746; 83036; 83540; 83550; 83690; 83735; 83880; 84484; 85025; 85379; 85610; 85730; 93005; 93306; 93454; 94150; 94640; 94760; 96361; 96365; 96372; 96375; 96376; 99285; C1874